=== PATIENT | male | born 1960 | race Caucasian/White ===

== ENCOUNTER 2021-02-22 07:45 | Inpatient (IN) | payer OTHER ==
[~2021-02-22] VITALS: Ht 190.5 cm; Wt 107.6 kg
[~2021-02-22 07:45] MED LIST: ALBU.083IS IH; ALBU90OI INH; ALBU90OI6 INH; BUDE10.22 IH; Cymbalta30 MG PO; DULO30 PO; ESCI10 PO; FURO20 PO; INHALER; LEVO750 PO; POTA10T PO; PRED20 PO; Prednisone20 MG PO
[2021-02-22 08:19] LABS: BASOPHILS ABSOLUTE AUTO 0.02 K/mm3 (0.00-0.23); BASOPHILS PERCENT AUTO 0 % (0-2); EOSINOPHILS PERCENT AUTO 0 % (0-6); Hematocrit 42.2 % (37.0-53.0); Hemoglobin 13.1 g/dL (13.5-17.5); IMMATURE GRAN ABSOLUTE AUTO 0.04 K/mm3 (0.00-0.10); IMMATURE GRAN PERCENT AUTO 0 % (0-1); LYMPHOCYTES PERCENT AUTO 4 % (21-46); MONOCYTES ABSOLUTE AUTO 1.79 K/mm3 (0.16-1.47); MONOCYTES PERCENT AUTO 17 % (4-13); Mean Corpuscular HGB 33.5 pg (26.0-34.0); Mean Corpuscular Volume 108 fL (80-100); Mean Platelet Volume 9.8 fL (9.1-12.4); NEUTROPHILS PERCENT AUTO 78 % (41-73); Platelet Count 258 K/mm3 (150-400); RDW Coefficient Variation 13.7 % (11.7-14.2); RDW Standard Deviation 54.8 fL (35.1-46.3); Red Blood Cell Count 3.91 M/mm3 (4.30-5.90); White Blood Cell Count 10.35 K/mm3 (4.00-11.30)
[2021-02-22 08:22] LABS: Base Excess Venous 8.1 mmol/L; Bicarbonate Venous 28.5 mmol/L (24.0-30.0); PCO2 Venous 86.1 mmHg (38-42); PO2 Venous 44.5 mmHg (38-42); pH Blood Venous 7.23 (7.34-7.37)
[2021-02-22 08:29] LABS: Alanine Aminotransfer (ALT/SGP 20 U/L (12-78); Albumin, Blood 2.7 g/dL (3.4-5.0); Albumin/Globulin Ratio 0.5 (0.8-1.8); Alk Phos 78 U/L (50-136); Anion Gap 4 mmol/L (6-16); Aspartate Aminotrans (AST/SGOT 34 U/L (12-37); Bilirubin, Total 1.3 mg/dL (0.1-1.0); Blood Urea Nitrogen 51 mg/dL (8-24); Bun/Creatinine Ratio 55.4 (12.0-20.0); CO2, Blood 30 mmol/L (21-32); Calcium, Blood 8.6 mg/dL (8.5-10.1); Chloride, Blood 91 mmol/L (98-108); Creatinine, Blood 0.92 mg/dL (0.60-1.20); Globulin, Blood 5.4 g/dL (2.2-4.0); Glomerular Filtration Rate >60 (60-); Glucose, Blood 129 mg/dL (70-99); Potassium, Blood 5.9 mmol/L (3.5-5.5); Sodium, Blood 125 mmol/L (136-145); Total Protein, Blood 8.1 g/dL (6.4-8.2); Troponin I 0.043 ng/mL (0.000-0.040)
[2021-02-22 08:36] LABS: International Normalized Ratio 1.04; Prothrombin Time Results 11.2 Sec (9.7-11.5)
[2021-02-22 10:17] LABS: Source, Urine Catheter
[2021-02-22 10:21] LABS: Appearance, Urine Hazy (Clear); Bilirubin, Urine Neg (Neg); Blood, Urine Neg (Neg); Color, Urine Yellow (P-Yellow); Glucose Qualitative, Urine Neg (Neg); Ketones, Urine Neg (Neg); Leukocyte Esterase, Urine 1+ (Neg); Nitrite, Urine Neg (Neg); Protein, Urine 3+ (Neg); Specific Gravity, Urine 1.025 (1.003-1.022); Urobilinogen, Urine 1+ (Normal)
[2021-02-22 10:30] LABS: Bacteria Few /hpf; Red Blood Cells, Urine 0-2 /hpf (0-2); Squamous Epithelial Cells Rare /hpf (Few)
[2021-02-22 10:31] LABS: Amorphous Mod (0-Heavy)
[2021-02-22 10:32] LABS: Hyaline Casts TNTC /lpf (0-2)
[2021-02-22 12:44] LABS: Influenza A, PCR NEGATIVE (NEGATIVE); Influenza B, PCR NEGATIVE (NEGATIVE); Resp Syncytial Virus, PCR NEGATIVE (NEGATIVE); SARS-Cov-2 (COVID-19) PCR, MMC NEGATIVE (NEGATIVE)
[2021-02-22 13:08] LABS: PO2 Arterial 110 mmHg (80-100)
[2021-02-22 13:09] LABS: PCO2 Arterial 97.3 mmHg (35-45); pH Blood Arterial 7.16 (7.35-7.45)
--- NOTE | 2021-02-22 13:22 | NUR ---
PT ARRIVAL AT 1130... PT ARRIVED ON UNIT VIA GURNEY AT 1130. PT WAS AWAKE AND ALERT ABLE TO STATE HIS NAME, AND WHERE HE WAS AT. PT WAS ON BIPAP AT 16/10 RATE 16 AND 55% FIO2. L/S VERY DIM T/O WITH MINIMAL AIR MOVEMENT. PT IS SITTING UP IN THE GURNEY UNABLE TO LAY DOWN, WHEN THE HEAD OF THE BED WAS LAYED DOWN TO ROLL THE PT HE WAS BECOMING VERY ANXIOUS AND UNABLE TO LAY FLAT EVEN WITH THE BIPAP ON. PT'S BP WAS STABLE. PT'S HR IS IN THE 130'S SINUS TACH W/BBB. BT PRESENT BUT VERY HYPOACTIVE, ABD IS FIRM AND NONTENDER TO PALP. PT'S YU IS PATENT DRAINING DARK YELLOW CLEAR URINE. PT'S ARE DARK RED/PURPLE WITH SMALL BLISTERS THAT ARE STARTING TO OPEN AND WHEEP. PULSES FOUND WITH DOPPLER. PT'S SCROTUM IS VERY SWOLLEN. WILL CONTINUE TO MONITOR.
--- NOTE | 2021-02-22 13:30 | NUR ---
PT UPDATE... AT 1300 THIS RN WENT IN TO DO HOURLY ROUNDING ON THE PT. THE PT DID NOT WAKE EASILY LIKE HE HAD SINCE ARRIVAL. A VERY STRONG STERNAL RUB WAS DONE AND PT SLOWLY OPENED HIS EYES PT WAS UNABLE TO KEEP HIS EYES OPEN OR RESPOND. AN ABG WAS OBTAINED THAT SHOWED CRITIAL RESULTS, RESULTS WERE CALLED TO , AND THE CHARGE NURSE IRMA. DR. LÓPEZ WAS CONSULTED. PT'S BIPAP SETTINGS CHANGED TO RATE OF 20, 20/10 AND 45% FIO2. WILL CONTINUE TO MONITOR.
[2021-02-22 15:26] LABS: Anion Gap 3 mmol/L (6-16); Blood Urea Nitrogen 55 mg/dL (8-24); Bun/Creatinine Ratio 51.9 (12.0-20.0); CO2, Blood 34 mmol/L (21-32); Calcium, Blood 8.5 mg/dL (8.5-10.1); Chloride, Blood 91 mmol/L (98-108); Creatinine, Blood 1.06 mg/dL (0.60-1.20); Glomerular Filtration Rate >60 (60-); Glucose, Blood 130 mg/dL (70-99); Magnesium, Blood 3.1 mg/dL (1.6-2.4); Phosphorus, Blood 5.5 mg/dL (2.5-4.9); Potassium, Blood 5.7 mmol/L (3.5-5.5); Sodium, Blood 128 mmol/L (136-145)
[2021-02-22 18:01] LABS: PCO2 Arterial 41.1 mmHg (35-45); PO2 Arterial 56.4 mmHg (80-100); pH Blood Arterial 7.52 (7.35-7.45)
--- NOTE | 2021-02-22 18:54 | NUR ---
SHIFT SUMMARY... AT 1346 THE PT WAS INTUBATED BY DR. LÓPEZ, 4MG OF IV VERSED AND 50MCG PROPOFOL IV PUSH WAS GIVEN FOR SEDATION MEDICATION FOR THE INTUBATION, PT WAS ALOS GIVEN 100MCG OF AMINAH PRIOR TO INTUBATION D/T HYPOTENSION. PT WAS INTUBATED WITHOUT ISSUE, ET TUBE IS 8.0 AND 24 AT THE TEETH. PT WAS PLACED ON THE VENT AT AC: 14/500/5/45%. PT'S O2 SATS HAVE BEEN >90%. PT WAS STARTED ON LEVOPHED D/T HYPOTENSION. PT'S HR CONTINUES TO BE SINUS TACH W/BBB IN THE 130'S. PROPOFOL GTT WAS STARTED AND TITRATED UP TO 60MCG/KG TO KEEP THE PT COMFORTABLE. LEVOPHED WAS TITRATED UP TO 20MCG/MIN TO KEEP MAPS >60. THE PT WAS STARTED ON NS AT 75MLS/HR, 3 BOTTLES OF ALBUMIN WAS GIVEN WELL. THE AFTERNOON PROGRESSED THE LEVOPHED WAS TITRATED DOWN TO IT'S CURRENT RATE OF 4MCG/MIN KEEPING HIS MAPS >60. PT'S FAMILY UPDATED AND ALLOWED AT THE BEDSIDE TO TALK ABOUT PT'S PLAN OF CARE AND CODE STATUS. TUBE FEEDS STARTED AT 25MLS/HR, WITH 30MLS Q4 OF H2O FLUSHES. GOAL RATE IS 45MLS/HR. WILL CONTINUE TO MONITOR UNTIL REPORT IS GIVEN TO ONCOMING RN.
--- NOTE | 2021-02-22 19:30 | NUR ---
PATIENT INTUBATED AND SEDATED WITH PROPOFOL 60 MCG FOR SEDATION. VENT SET AT AC 14, TV 400, PEEP 5, FIO2 40%. LEVOPHED 2 MCG FOR HYPOTENSION. PATIENTS LOWER EXTREMITIES BOTH BRIGHT RED AND SWOLLEN WITH SMALL BLISTERS SEEN TO LEFT CARRASCO AREA. YU DRAINING SMALL AMT OF JONATHAN URINE. FATHER CLEATUS IN TO SEE PATIENT.
--- NOTE | 2021-02-22 22:55 | NUR ---
TUBE FEEDING OFF DUE TO RESIDUAL OF 230 CC OF CLEAR AND WHITE BILE
[2021-02-23] MEDS ORDERED: TIOT18 INH (03:25)
[2021-02-23] MEDS ORDERED: FLONASE ALLERG9.9 M2 (03:29)
[2021-02-23] MEDS ORDERED: ALBU90OI INH (03:30)
[2021-02-23] MEDS ORDERED: FLUT1DIS5 INH (03:31)
[2021-02-23] MEDS ORDERED: TRELEGY ELLIPT1 EACH INH (03:32)
[2021-02-23 04:19] LABS: BASOPHILS ABSOLUTE AUTO 0.01 K/mm3 (0.00-0.23); BASOPHILS PERCENT AUTO 0 % (0-2); EOSINOPHILS PERCENT AUTO 0 % (0-6); Hematocrit 33.7 % (37.0-53.0); Hemoglobin 10.7 g/dL (13.5-17.5); IMMATURE GRAN ABSOLUTE AUTO 0.03 K/mm3 (0.00-0.10); IMMATURE GRAN PERCENT AUTO 0 % (0-1); LYMPHOCYTES ABSOLUTE AUTO 0.28 K/mm3 (0.84-5.20); LYMPHOCYTES PERCENT AUTO 3 % (21-46); MONOCYTES ABSOLUTE AUTO 1.12 K/mm3 (0.16-1.47); MONOCYTES PERCENT AUTO 13 % (4-13); Mean Corpuscular HGB 33.5 pg (26.0-34.0); Mean Corpuscular HGB Conc 31.8 g/dL (31.5-36.5); Mean Corpuscular Volume 106 fL (80-100); Mean Platelet Volume 9.9 fL (9.1-12.4); NEUTROPHILS ABSOLUTE AUTO 7.45 K/mm3 (1.96-9.15); NEUTROPHILS PERCENT AUTO 84 % (41-73); Platelet Count 198 K/mm3 (150-400); RDW Coefficient Variation 13.8 % (11.7-14.2); RDW Standard Deviation 53.6 fL (35.1-46.3); Red Blood Cell Count 3.19 M/mm3 (4.30-5.90); White Blood Cell Count 8.89 K/mm3 (4.00-11.30)
[2021-02-23 04:39] LABS: Alanine Aminotransfer (ALT/SGP 13 U/L (12-78); Albumin, Blood 2.9 g/dL (3.4-5.0); Albumin/Globulin Ratio 0.8 (0.8-1.8); Alk Phos 57 U/L (50-136); Anion Gap 4 mmol/L (6-16); Aspartate Aminotrans (AST/SGOT 13 U/L (12-37); Bilirubin, Total 1.4 mg/dL (0.1-1.0); Blood Urea Nitrogen 53 mg/dL (8-24); CO2, Blood 33 mmol/L (21-32); Calcium, Blood 8.3 mg/dL (8.5-10.1); Chloride, Blood 93 mmol/L (98-108); Creatinine, Blood 1.02 mg/dL (0.60-1.20); Globulin, Blood 3.7 g/dL (2.2-4.0); Glomerular Filtration Rate >60 (60-); Glucose, Blood 138 mg/dL (70-99); Magnesium, Blood 3.2 mg/dL (1.6-2.4); Phosphorus, Blood 4.1 mg/dL (2.5-4.9); Potassium, Blood 5.3 mmol/L (3.5-5.5); Sodium, Blood 130 mmol/L (136-145); Total Protein, Blood 6.6 g/dL (6.4-8.2)
[2021-02-23 05:31] LABS: PCO2 Arterial 51.6 mmHg (35-45); PO2 Arterial 76.8 mmHg (80-100); pH Blood Arterial 7.43 (7.35-7.45)
--- NOTE | 2021-02-23 07:00 | NUR ---
SUMMARY PATIENT REMAINS INTUBATED AND SEDATED, VENT AC 14, TV 400, PEEP 5, FIO2 40% WITH MIN SECRETIONS. PROPOFOL TITRATED DOWN TO 45 MCG, COUGH WITH ORAL CARE AND SUCTIONING, SLIGHT MOVEMENT SEEN TO EXTREMITIES. BILAT LOWER EXT CONTINUE TO BE BRIGHT RED AND SWOLLEN, BLISTER TO LEFT CARRASCO APPEARS TO BE GETTING BIGGER. OG REMAINS IN PLACE AND CLAMPED DUE TO RESIDUAL GREATER THAN 200 CC, YELLOW WITH DIGESTED FEEDING.
--- NOTE | 2021-02-23 08:00 | NUR ---
ASSUMED CARE REPORT FROM DORIS SANCHEZ. PT INTUBATED AND SEDATED. PROPOFOL GTT AT 45 MCG/KG/MIN. PT RESPONSIVE TO PAINFUL STIMULI. DOES NOT OPEN EYES OR FOLLOW COMMANDS. GAG/COUGH/SWALLOW REFLEX PRESENT. GRIMACES c CARE. VENT SETTINGS AC 14/400/40/5. LUNGS DIMINISHED IN BASES. SMALL AMOUNT OF THIN PRICE SECRETIONS THROUGH ETT. OGT CLAMPED AT SHIFT CHANGE. 200 ML OF RESIDUALS. RESTARTED TUBE FEEDS AT 25 ML/HR c 30 ML FLUSH q4 HR. ABD FIRM, ROUND, DISTENDED. HYPOACTIVE BT. U/S COMPLETE. YU PATENT, DRAINING YELLOW URINE c SEDIMENT TO GRAVITY. LEVO GTT FOR MAP>65. CENTRAL LINE TO RIGHT SUBCLAVIAN, DRESSING C/D/I. NS AT 75 ML/HR. PT EDEMATOUS FROM WAIST DOWN. 4+ EDEMA TO BLE, PITTING, RED, BLISTERING. PEDAL PULSES BY DOPPLER. DR ROSSY SUAZO FOR CONSULT. SCROTUM IS SIGNIFICANTLY SWOLLEN. WILL CONTINUE TO MONITOR.
--- NOTE | 2021-02-23 17:38 | NUR ---
SHIFT SUMMARY PT REMAINS INTUBATED. VENT SETTINGS AC 14/400/5/40%. LUNGS DIMINISHED IN BASES. SMALL AMOUNT OF PRICE SECRETIONS THROUGH ETT. COUGH/GAG/SWALLOW REFLEX. SEDATION VACATION THIS SHIFT. PT ABLE TO FOLLOW SIMPLE COMMANDS, NODS HEAD. PROPOFOL RESTARTED AT 20 MCG/KG/MIN. TUBE FEEDS RESTARTED THIS SHIFT, RESIDUALS <200ML. ABD ROUND, DISTENDED. BT X 4. YU PATENT, DRAINING YELLOW URINE c SEDIMENT TO GRAVITY, 200 ML OUT THIS SHIFT. ABD U/S AND ECHO COMPLETED THIS SHIFT, PENDING CARDIOLOGY CONSULT. HR 120-140'S, DR CORDERO AWARE. LEVO GTT REMAINS AT 3 MCG/MIN FOR ENTIRE SHIFT. NO CHANGE TO SKIN, LE AND SCROTUM. WILL CONTINUE TO MONITOR UNTIL REPORT TO ONCOMING NURSE.
--- NOTE | 2021-02-23 17:50 | NUR ---
Spiritual care note: Several attepmts to meet with family today. Per admit trigger, I was tasked to speak to pt/family about advanced care planning. I left advanced directive packet on bedside table and will continue to attempt conversation in coming days. Pt was on vent and non-responsive.
--- NOTE | 2021-02-23 18:44 | NUR ---
CARDIO CONSULT SPOKE c DR CLARK ON PHONE FOR CONSULT. WILL SEE PT TODAY. RECOMMENDED LASIX 120 MG OVER 1 HOUR, AFTER GIVING VS, DR CLARK ASKED FOR DOUGHNUT DOUGH MIXER INPUT. DR CORDERO RECOMMENDED WAITING UNTIL DR CLARK COULD ASSESS PT. LASIX NOT ORDERED AT THIS TIME.
--- NOTE | 2021-02-23 20:32 | NUR ---
PATIENT INTUBATED AND SEDATED WITH PROPOFOL 20 MCG PATIENT AWAKENS TO SLIGHT STIMULI, GRIMACING AND COUGHING WITH ORAL CARE, FULL BODY TREMOR, SHACKING AFTER REPOSITIONING, RELAXING WITH VERBAL CUES, PROPOFOL INCREASED TO 30 MCG TO HELP PATIENT MARIANNA ETT. VENT SET AT AC 14, TV 400, PEEP 5, FIO2 40% SUCTIONING MIN CLEAR SECRETIONS. OG IN PLACE WITH VITAL HP AT 25 CC/HR, 30 CC OF DIGESTED FORMULA, FEEDING INCREASED TO GOAL RATE OF 40 CC/HR. DOCTOR EDUARDO IN TO SEE PATIENT
--- NOTE | 2021-02-23 21:40 | NUR ---
DOCTOR CLARK IN TO SEE PATIENT. ADENOSINE 6 MG IV GIVEN WITH 12 LEAD RHYTHM STRIP IN PROGRESS TO CONFIRM PATIENT IS IN AFLUTTER. LOVENOX INCREASED TO 1MG/KG QDAY, AND AMIODARONE IV STARTED WITH SLOW INITIAL BOLUS, THEN STANDARD RATE.
[2021-02-24 04:23] LABS: BASOPHILS ABSOLUTE AUTO 0.01 K/mm3 (0.00-0.23); BASOPHILS PERCENT AUTO 0 % (0-2); EOSINOPHILS PERCENT AUTO 0 % (0-6); Hematocrit 36.9 % (37.0-53.0); Hemoglobin 11.9 g/dL (13.5-17.5); IMMATURE GRAN ABSOLUTE AUTO 0.04 K/mm3 (0.00-0.10); IMMATURE GRAN PERCENT AUTO 0 % (0-1); LYMPHOCYTES ABSOLUTE AUTO 0.28 K/mm3 (0.84-5.20); LYMPHOCYTES PERCENT AUTO 3 % (21-46); MONOCYTES ABSOLUTE AUTO 1.39 K/mm3 (0.16-1.47); MONOCYTES PERCENT AUTO 13 % (4-13); Mean Corpuscular HGB 33.8 pg (26.0-34.0); Mean Corpuscular HGB Conc 32.2 g/dL (31.5-36.5); Mean Corpuscular Volume 105 fL (80-100); Mean Platelet Volume 10.3 fL (9.1-12.4); NEUTROPHILS PERCENT AUTO 84 % (41-73); NRBC ABSOLUTE 0.02 K/mm3 (0.00-0.02); NRBC Auto 0.2 /100 WBC (0.0-0.2); Platelet Count 234 K/mm3 (150-400); RDW Standard Deviation 54.6 fL (35.1-46.3); Red Blood Cell Count 3.52 M/mm3 (4.30-5.90); White Blood Cell Count 10.72 K/mm3 (4.00-11.30)
[2021-02-24 04:29] LABS: PCO2 Arterial 49.1 mmHg (35-45); PO2 Arterial 62.7 mmHg (80-100); pH Blood Arterial 7.41 (7.35-7.45)
[2021-02-24 04:46] LABS: Albumin, Blood 2.9 g/dL (3.4-5.0); Albumin/Globulin Ratio 0.7 (0.8-1.8); Bilirubin, Total 1.2 mg/dL (0.1-1.0); Bun/Creatinine Ratio 40.7 (12.0-20.0); Calcium, Blood 8.3 mg/dL (8.5-10.1); Creatinine, Blood 1.5 mg/dL (0.60-1.20); Globulin, Blood 4.1 g/dL (2.2-4.0); Magnesium, Blood 3.4 mg/dL (1.6-2.4); Phosphorus, Blood 5.2 mg/dL (2.5-4.9); Potassium, Blood 5.5 mmol/L (3.5-5.5)
--- NOTE | 2021-02-24 06:40 | NUR ---
SUMMARY PATIENT REMAINS INTUBATED AND SEDATED, VENT AC 14, TV 400, PEEP 5, FIO2 35% SUCTIONING SMALL AMT OF CLEAR SPUTUM. SEDATED WITH PROPOFOL 30 MCG. OPENS EYES TO VERBAL AND OCCASIONALLY NODDING TO QUESTIONS. POT MAKER CONTINUES TO SHOW AFIB WITH RATE IN LOW 100'S WITH AMIODARONE AT 0.5 MG/MIN. LEVOPHED 5 MCG CONTINUES FOR HYPOTENSION. OG REMAINS IN PLACE WITH VITAL HP AT GOAL RATE OF 40 CC/HR WITH RESIDUAL OF 200'S. GENERALIZED EDEMA CONTINUES WITH BLISTERS TO LEFT CARRASCO AREA. BOTH LEGS CONTINUE TO BE BRIGHT RED IN COLOR.
--- NOTE | 2021-02-24 07:59 | NUR ---
Received report from Karis SANCHEZ. Patient is intubated and sedated and responds to loud verbal stimuli and painful stimuli. He has 8.0 ET and is 24 cm at teeth with vent settings AC 14, TV 400, FiO2 35% and PEEP 5.0 and sats mid to upper 90%'s. He has 20ga IV in RH flushed and SL's. He also has reight subclavin quad CL, dressing intact and site WNL's and is infusing Propofol 30 mcg/kg/min, NS TKO, Levophed 5 mcg/min, Amiodarone 0.5 mg/min. Oral care and positioning done and am care as well. He has 14Fr Reynoso draing cloudy yellow urine in scant amounts. His distal LE's from knee's down are bright red and reduced since yesterday. He is in A-fib 80-90's and systolic 70-80's and MAP >65. He has bilateral soft wrist restraints for line and patient safety.
--- NOTE | 2021-02-24 10:00 | NUR ---
Dr Esqueda in room doing assessment. TF remains on hold r/t large residual. Patient has been resting quietly. No changes to vent or gtt changes. Systolics remains 70-80 and MAP >65, Afib 80-90's. TF are changing to Pivot 1.5 at 20 ml/hr.
--- NOTE | 2021-02-24 12:00 | NUR ---
No other significant changes with patient, no new orders.
--- NOTE | 2021-02-24 13:20 | NUR ---
Met ptLucio chen on vent prayed for the pt. and blessed him.
--- NOTE | 2021-02-24 15:30 | NUR ---
Patient family member Kurt is in room and has been asking questions for family. Amiodarone remains at 0.5 mg/min, propofol 30 mcg/kg/min, NS TKO. Vent settings remains at AC 14, TV 400, FiO2 35% and PEEP 5 with sats low 90%. Only a total 50 mls of dark yellow urine of output.
--- NOTE | 2021-02-24 17:33 | NUR ---
Dr Mcwilliams by to see patient and until residual go down to keep Amiodarone at 0.5 mg/min. Vent settings AC 14, TV 400, FiO2 35%, PEEP 5.0 and sats >90%. Residual 300 ml with new Pivot 1.5 at goal 20 ml/hr. No other significant changes. Still only about 50 ml light clair urine for entire shift.
--- NOTE | 2021-02-24 20:30 | NUR ---
PATIENT INTUBATED AND SEDATED, AT 1999 PATIENT NOT RESPONDING NO COUGH WITH SUCTIONING. PROPOFOL OFF, WITHIN 15 MIN PATIENT STARTED OPENING EYES AND NODDING YES AND NO TO QUESTIONS, BOTH HANDS EXTREMELY WEAK. PROPOFOL RESTARTED AT 10 MCG, TO HELP PATIENT MARIANNA ETT. AMIODARONE CONTINUES AT 0.5 MG PLAN TO CONTINUE T/O NIGHT. LEVOPHED 4 MCG FOR HYPOTENSION, DOBUTAMINE AT 2 MCG HELPING TO WIDEN PULSE PRESSURE. GENERALIZED EDEMA CONTINUES, BOTH LEGS CONTINUE TO BE RED WITH BLISTERS TO LEFT CARRASCO. SCROTUM CONTINUES TO BE VERY SWOLLEN ALSO. SCLERAL EDEMA TO BOTH EYES. OG IN PLACE WITH PIVIT 1.5 INFUSING AT GOAL RATE OF 20 CC/HR. PATIENT CONTINUES TO HAVE HIGH RESIDUALS.
--- NOTE | 2021-02-25 02:52 | NUR ---
PATIENT AWAKENS EASILY TO SLIGHT STIMULI, OPENING EYES SLIGHTLY, ATTEMPTING TO SPEAK DESPITE BEING REMINDED THAT HE HAS AN ETT AND TO JUST NOD YES AND NO PATIENT NOT NODDING HEAD AND NOT FOLLOWING DIRECTIONS,
[2021-02-25 04:25] LABS: BASOPHILS ABSOLUTE AUTO 0.01 K/mm3 (0.00-0.23); BASOPHILS PERCENT AUTO 0 % (0-2); EOSINOPHILS PERCENT AUTO 0 % (0-6); Hemoglobin 11.5 g/dL (13.5-17.5); IMMATURE GRAN ABSOLUTE AUTO 0.06 K/mm3 (0.00-0.10); IMMATURE GRAN PERCENT AUTO 1 % (0-1); LYMPHOCYTES ABSOLUTE AUTO 0.43 K/mm3 (0.84-5.20); LYMPHOCYTES PERCENT AUTO 4 % (21-46); MONOCYTES PERCENT AUTO 15 % (4-13); Mean Corpuscular HGB 33.4 pg (26.0-34.0); Mean Corpuscular HGB Conc 31.9 g/dL (31.5-36.5); Mean Corpuscular Volume 105 fL (80-100); Mean Platelet Volume 10.2 fL (9.1-12.4); NEUTROPHILS ABSOLUTE AUTO 9.57 K/mm3 (1.96-9.15); NEUTROPHILS PERCENT AUTO 81 % (41-73); NRBC ABSOLUTE 0.05 K/mm3 (0.00-0.02); NRBC Auto 0.4 /100 WBC (0.0-0.2); Platelet Count 212 K/mm3 (150-400); RDW Standard Deviation 53.6 fL (35.1-46.3); Red Blood Cell Count 3.44 M/mm3 (4.30-5.90); White Blood Cell Count 11.87 K/mm3 (4.00-11.30)
[2021-02-25 04:48] LABS: Bun/Creatinine Ratio 38.3 (12.0-20.0); Calcium, Blood 7.7 mg/dL (8.5-10.1); Creatinine, Blood 2.01 mg/dL (0.60-1.20); Magnesium, Blood 3.2 mg/dL (1.6-2.4); Phosphorus, Blood 5.4 mg/dL (2.5-4.9)
--- NOTE | 2021-02-25 06:27 | NUR ---
SUMMARY PATIENT REMAINS INTUBATED AND SEDATED, ATTEMPTS TO OPEN HIS EYES TO VERBAL STIMULI, AND ATTEMPTS TO SPEAK AROUND ETT WHEN ASKED QUESTIONS. PROPOFOL 15 MCG TO HELP PATIENT MARIANNA ETT. LEVOPHED TITRATED DOWN T/O NIGHT NOW AT 2 MCG, DOBUTAMINE 2 MCG CONTINUES, AMIODARONE 0.5 MG CONTINUES. VENT SET AT AC 14, TV 400, PEEP 5, FIO2 45% SUCTIONING OCCASIONAL BROWN/PRICE PLUGS. OG REMAINS IN PLACE WITH PIVIT 1.5 AT GOAL RATE OF 20 CC/HR, CONTINUES TO HAVE LARGE AMTS OF RESIDUAL OF DIGESTED TUBE FEED. GENERALIZED EDEMA CONTINUES WITH BLISTERS TO BOTH SHINS SEEN. URINE OUTPUT IMPROVING T/O NIGHT. UPDATE GIVEN TO PATIENTS SISTER AND MOTHER CHARGE NURSE MARIA ISABEL
--- NOTE | 2021-02-25 07:51 | NUR ---
Received report from Karis SANCHEZ. Patient is intubated and sedated. He has 8.0 ET and is 25 cm at teeth with vent settings of AC 14, TV 400, FiO2 45%, PEEP 5.0 and sats 93%. He aroused with oral care. He is in A-fib 80-90's with systolics in the 90's. He has R subclavin quad CL and is infusing Propofol at 15 mcg/kg/min, Levophed at 2 mcg/min, Dobutamine at 2 mcg/kg/min, Amiodarone 0.5 mg/min, NS TKO. He has OG in place with Pivot 1.5 and goal rate of 20 ml/hr and 30 ml water flush Q4. He has 4+ edema from abdomen to toes. His distal bialteral LE's are bright red and aileen with touch. He is in bilateral soft wrist restraints for line and patient safety. He has 14 Fr Reynoso draining to gravity clear yellow urine and has been improving in amount.
--- NOTE | 2021-02-25 09:30 | NUR ---
Dr Mcwilliams by to see patient Dobutamine continues at 2 mcg/kg/minand systolics 100's. Placed Levophed on standby and systolics now 80-90's. Amiodarone remains at 0.5 mg/min and he has mostly SR BBB and then back to A-fib. No vent setting changes. ECHO done. Hospitalist have been by as well.
--- NOTE | 2021-02-25 10:30 | NUR ---
Initial Pal Care visit - Pt is intubated and sedated. He has tube feedings running. Brief bedside visit before case conference with RN and IDT meeting in ICU to review current status and plan. Pt is extremely edemetous from abd down with red angry appearing skin on allen LE. Family would like to meet to discuss goals and care plan, per RN. This is planned with at 2pm today. Pt's mom, Kayla, states she will bring in AD for our records. She and pt's sister, Eleni will be involved in family meeting with Dr Sanchez and Palliative Care.
--- NOTE | 2021-02-25 11:39 | NUR ---
Dr Sanchez has seen patient and new med orders in. Sister and mother POA will be here at 1400 and would like to sit down and meet with and Palliative Care. Urine output has been at least 175 ml/hr clear yellow urine.
--- NOTE | 2021-02-25 12:08 | NUR ---
Echocardiogram using 0.50ml of Definity contrast performed.
--- NOTE | 2021-02-25 15:16 | NUR ---
[facility] Care note - Proxy decision maker-mom, Kayla Suggs CHANGE IN CODE STATUS TO DNR Pt's mom & sister, Eleni, in to visit. They received update from pt's RN re: current status and changes in past 24 hours. Eleni opted to stay with Kurt while mom, Dr Sanchez and I met outside unit for family conference. gave Kayla information on multiple organ issues/challenges and outlined tx. also asked questions to learn what Kurt's quality of life and function was prior to this event. Kurt has struggled with serious health issues for approx 10 years and has had a steady decline in his ability to function for the past 6 years. He was living in a camp trailer on his mother's property but would not allow anyone in to help him. Kayla describes her son's living conditions as horrific. She said he didn't complain but was in denial about his health issues and his drinking and they did not discuss either of those things or his wishes for situations like he is in now. She was hopeful that he would be able to communicate with them to make acting as his surrogate easier on the family. Kayla is realistic that this may not be possible and she appears realistic regarding his guarded to poor prognosis due to heart failure, kidney failure and resp failure. It was a very productive meeting for learning more about his pre-hospitalization life and answering family's questions. Kayla does not want to prolong her son's suffering if recovery is not possible. She verbalizes understanding of 's thorough update. She asks that we not perform CPR if his heart stops and that we treat his pain if present. Current plan formulated between & family is to give pt time to see if tx improves his situation. Family to consider other advanced care planning to discuss with his siblings and children for future decision making, ie dialysis, trach or feeding tube if pt unable to be weaned off of vent or suffers worsening kidney failure in the next 10 days. Mom understands that no further decisions need to be discussed or made today. She indicated they would not opt for dialysis, trach or feeding tube if those options were offered at a later date but will discuss further with pt's children and siblings. Kayla states that family members have been in frequent communication with one another and are all in agreement regarding goals and plan of care at this time. VO received for code status change to DNR per mom's request. Order entered per Dr Sanchez. RN and Industrial Pharmacist updated afterwards. Spoke with sister, Eleni, and gave brief summary. Eleni states she will get more details from mom. Another sister, Yvette plans to visit tomorrow. [facility] number and names of nurses provided to Kayla and she was invited to call if she wanted to talk about anything else in the coming days.
--- NOTE | 2021-02-25 15:41 | NUR ---
Sister and mother meet with Dr Sanchez and Palliative care. Patient is now DNR. No vent setting changes. Levophed has been on standby since 1200 and Dobutamine at 2 mcg/kg/min with systolics 90-100's and MAP's >65. Urine output remains high at least 150 ml/hr. Patient moving upper extremities with agitation and care. Patient in persistent a-flutter per Dr Mcwilliams.
--- NOTE | 2021-02-25 18:00 | NUR ---
Patient remains intubated with 8.0 ET and 25 cm at teeth with vent setting AC 14, TV 400, FiO2 40, PEEP 5.0 and sats >90%. Right subclavin CL infusing Propofol 10 mcg/kg/min, Dobutamine 2 mcg/kg/min, NS TKO, changed Amiodarone to PT at 400mg BID. He has 1700 ml light clair urine from anderson. Placed rectal tube for 4th liquid brown stool.
--- NOTE | 2021-02-25 20:00 | NUR ---
ASSUMED CARE OF PT AT 1915. REPORT RECEIVED. PT PRESENTS IN BED. VENTED - AC 14, Tv 400, FIO2 40% PEEP 5. SUCTIONING ETT RETURNS SMALL AMOUNT OF BLOOD TINGED SECRETIONS. PT DOES OPEN HIS EYES WITH TACTILE STIMULI. DOBUTAMINE AT 2 MCG'S/KG/MIN. BLOOD PRESSURES REMAINS WITH MAP > 60. WILL REVIEW CHART AND PLAN OF CARE FOR THIS PT.
--- NOTE | 2021-02-26 03:00 | NUR ---
HAVE COMPLETED BEDBATH. PT TOLERATED WELL. ALLEVYN DRESSING APPLIED OVER LEFT CARRASCO ESCORIATED AREA. PT DOES CONTINUE WITH SMALL AMOUNT OF BLOOD TINGED SECRETIONS. BLOOD PRESSURES MAINTAINS WITH MAP > 65. OXYGEN SATURATION 90-92 PERCENT. WILL CONTINUE TO MONITOR.
[2021-02-26 04:24] LABS: BASOPHILS ABSOLUTE AUTO 0.01 K/mm3 (0.00-0.23); BASOPHILS PERCENT AUTO 0 % (0-2); EOSINOPHILS PERCENT AUTO 0 % (0-6); Hematocrit 37.2 % (37.0-53.0); Hemoglobin 11.9 g/dL (13.5-17.5); IMMATURE GRAN ABSOLUTE AUTO 0.07 K/mm3 (0.00-0.10); IMMATURE GRAN PERCENT AUTO 1 % (0-1); LYMPHOCYTES ABSOLUTE AUTO 0.22 K/mm3 (0.84-5.20); LYMPHOCYTES PERCENT AUTO 2 % (21-46); MONOCYTES ABSOLUTE AUTO 1.08 K/mm3 (0.16-1.47); MONOCYTES PERCENT AUTO 9 % (4-13); Mean Corpuscular HGB 33.8 pg (26.0-34.0); Mean Corpuscular Volume 106 fL (80-100); Mean Platelet Volume 9.9 fL (9.1-12.4); NEUTROPHILS ABSOLUTE AUTO 10.69 K/mm3 (1.96-9.15); NEUTROPHILS PERCENT AUTO 89 % (41-73); NRBC ABSOLUTE 0.04 K/mm3 (0.00-0.02); NRBC Auto 0.3 /100 WBC (0.0-0.2); Platelet Count 191 K/mm3 (150-400); RDW Coefficient Variation 14.1 % (11.7-14.2); RDW Standard Deviation 54.4 fL (35.1-46.3); Red Blood Cell Count 3.52 M/mm3 (4.30-5.90); White Blood Cell Count 12.07 K/mm3 (4.00-11.30)
[2021-02-26 04:35] LABS: Bun/Creatinine Ratio 45.4 (12.0-20.0); Creatinine, Blood 1.85 mg/dL (0.60-1.20); Potassium, Blood 3.9 mmol/L (3.5-5.5)
--- NOTE | 2021-02-26 05:35 | NUR ---
PT CONTINUES WITH DOBUTAMINE AT 2MCG'S/KG AND IS ABLE TO MAINTAIN MAP > 65. VENT WITH FIO2 AT 45 PERCENT. OXYGEN SATURATIONS MAINTAIN >94%, DECREASED FUI2 TI 40 %. CONTINUES TO MAINTAIN SATS > 90%. PT DOES AT TIMES RESIST CARE WITH TURNS. KEKE PATENT TO LIQUID BROWN STOOL. YU WITH URINE OUTPUT THAT IS Q.S. WILL CONTINUE TO MONITOR PT, AND WILL REPORT OFF TO ONCOMING RN.
--- NOTE | 2021-02-26 08:20 | NUR ---
INITIAL ASSESSMENT PATIENT INTUBATED AND SEDATED. PATIENT RESPONDS TO NOXIOUS STIMULI. GROSS MOVEMENTS OF EXTREMITIES NOTED. PATIENT AFEBRILE. NO SIGNS OF PAIN NOTED. PATIENT ON VENT SETTINGS OF AC 14, TV 400, PEEP 5, FIO2 INCREASED FROM 40 TO 50%. LUNGS CLEAR IN UPPER LOBES, DIMINISHED IN LOWER LOBES. SMALL AMOUNT OF THICK, RED/ BROWN SPUTUM BEING SUCTIONED FROM ETT. O2 EAR PROBE BEING CHANGED SITES Q2H. PATIENT IN A. FLUTTER WITH BBB. HR 70S TO 90S. MAPS 80S ON DOBUMATINE AT 2 MCG/ KG/ MINUTE. DOBUTAMINE DRIP PLACED ON SB; SBP DROPPED TO 70S. DOBUTAMINE RESTARTED AT 2 MCG/ KG/ MINUTE. BILAT FOOT PULSES FAINT. ABDOMEN MODERATELY DISTENDED, FIRM, WITH TYMPANIC BOWEL SOUNDS NOTED. RECTAL TUBE IN PLACE DRAINING SMALL AMOUNTS OF LIQUID, BROWN STOOL. OG IN PLACE. PIVOT 1.5 INFUSING AT GOAL RATE OF 20 MLS/ HOUR WITH 30 ML WATER FLUSH Q4H. RESIDUAL OF 200 MLS OBTAINED AND REINSTILLED THIS AM. YU IN PLACE DRAINING LIGHT YELLOW COLORED URINE. SCHEDULED LASIX ON EMAR. SKIN COLD. FEET DUSKY. BLES REDDENED WITH 3+ EDEMA. SCATTERED BRUISES AND SCABS NOTED. DEPENDENT EDEMA TO SIDES OF ABDOMEN/ THIGHS, SCROTUM. TRACE EDEMA NOTED TO BUES. PROPOFOL INFUSING 25 TO 30 MCG/ KG/ MINUTE. NS TKO. DR. HILL STATED NO SEDATION VACATION OR WEAN TODAY. BED LOW, CALL LIGHT IN REACH. WILL CONTINUE TO MONITOR PATIENT FREQUENTLY THROUGHOUT SHIFT.
--- NOTE | 2021-02-26 08:30 | NUR ---
DR. HILL IN PATIENT ROOM. UPDATED ON PATIENT. INFORMED THAT MAP 80S WITH DOBUTAMINE AT 2 MCG/ KG/ MINUTE. INFORMED THAT PLACED ON SB AND SBP DROPPED TO 70S SO DOBUTAMINE TURNED BACK ON AT 2 MCG/ KG/ MINUTE. INFORMED THAT BUN INCREASING. INFORMED THAT PATIENT HAD TF RESIDUAL OF 200 MLS THIS AM AND THAT IT WAS REINSTILLED. ORDERS RECEIVED.
--- NOTE | 2021-02-26 12:30 | NUR ---
PATIENT AFEBRILE. NO SIGNS OF PAIN NOTED. PATIENT REMAINS ON AC 14, TV 400, PEEP 5 AND 50% FIO2. PATIENT REMAINS IN A. FLUTTER WITH BBB. HR 60S TO 70S. SBP 90S TO 1-TEENS. TF RESIDUAL OF 300 MLS OBTAINED AND REINSTILLED. TF PLACED ON HOLD FOR TIME BEING. SEDIMENT NOTED IN URINE. GOOD URINE OUTPUT THUS FAR. PRECEDEX AT 0.6 MCG/ KG/ HOUR, PROPOFOL AT 20 MCG/ KG/ MINUTE. EAR PROBE SITE BEING CHANGED Q2H AND PRN. NO OTHER ACUTE CHANGES TO NOTE ON AT THIS TIME. WILL CONTINUE TO MONITOR.
--- NOTE | 2021-02-26 16:00 | NUR ---
Spiritual care note: Provided supportive visit to Kurt and his sister at bedside. Kurt is surprisingly lucid and responsive. he denies fear/pain. He seems to understand he may be facing end-of-life. oth were appreciative of prayer and gentle counseling services director. Affirmed obvious love and encouraged continued communication. Family hope that Kurt can be safely extubated soon. At the very least they are hoping he is lucid enough tomorrow to have conversation and POC and code choices. Family feels Kurt should make his own decisions. I will remain available.
--- NOTE | 2021-02-26 16:15 | NUR ---
PATIENT AFEBRILE. PATIENT REMAINS INTUBATED. PROPOFOL ON SB AND PRECEDEX AT 0.2 MCG/ KG/ HOUR. PATIENT ABLE TO OPEN EYES WHEN ASKED TO. PATIENT LIKES TO KEEP EYES CLOSED. PATIENT CALM, COOPERATIVE AND ABLE TO COMMUNICATE WITH NURSE AND FAMILY BY NODDING/ SHAKING HEAD, SIGNALING WITH HANDS, WRITING ON NOTEPAD. HR 70S TO 90S. SBP 90S TO 120S. TF RESIDUAL OF 110 OBTAINED AND REINSTILLED. TF RESTARTED BUT AT NEW GOAL RATE OF 30 MLS/ HOUR. VENT SETTINGS REMAIN THE SAME. OXYGEN EAR PROBE SITE CHANGED. NO OTHER CHANGES TO NOTE ON AT THIS TIME. WILL CONTINUE TO MONITOR.
[2021-02-26 17:04] LABS: Bun/Creatinine Ratio 48.4 (12.0-20.0); Calcium, Blood 8.4 mg/dL (8.5-10.1); Creatinine, Blood 1.84 mg/dL (0.60-1.20); Potassium, Blood 3.4 mmol/L (3.5-5.5)
--- NOTE | 2021-02-26 18:35 | NUR ---
SHIFT SUMMARY PATIENT REMAINED INTUBATED. PATIENT SEDATED ON PROPOFOL AT BEGINNING OF SHIFT. PATIENT RESPONDED TO NOXIOUS STIMULI. PATIENT DECREASED TO SB ON PROPOFOL AND PLACED ON PRECEDEX FOR SEDATION DURING SHIFT. PATIENT ORIENTED TO SELF, NURSE, FAMILY, FOLLOWING DIRECTIONS. PATIENT ABLE TO COMMUNICATE WITH HAND SIGNALS, NODDING/ SHAKING OF HEAD AND WRITING ON NOTEPAD. PATIENT REMAINED CALM AND COOPERATIVE. HAD NO COMPLAINTS OF PAIN. PATIENT REMAINED AFEBRILE. PATIENT ON AC 14, TV 400, PEEP 5 AND 40% FIO2 UPON ASSUMPTION OF CARE. FIO2 INCREASED TO 50% SHORT TIME LATER AND REMAINS AT 50%. SMALL AMOUNT OF THICK, RED/BROWN SECRETIONS BEING SUCTIONED FROM ETT. LUNGS REMAINED CLEAR IN UPPER LOBES AND DIMINISHED IN LOWER LOBES ON AUSCULTATION. PATIENT REMAINED IN A. FLUTTER WITH BBB, HR 70S TO 90S. SBP 70S TO 120S. BPS LOW WHEN DOBUTAMINE ON SB FOR SHORT WHILE. BP REMAINED STABLE WITH DOBUTAMINE ON. DOBUTAMINE TO REMAIN AT MINIMUM RATE OF 2 MCG/ KG/ MINUTE THROUGHOUT NIGHT PER DR. HILL AND DR. CLARK. PATIENT HAD 250 MLS OF BROWN, LIQUID STOOL FROM RECTAL TUBE. TF RATE CHANGED FROM 20 MLS/ HOUR TO 35 AND BACK DOWN TO 30 THIS SHIFT. RESIDUALS RANGED FROM 110 TO 300 MLS. TF HELD FOR SHORT TIME DURING SHIFT AFTER HIGH RESIDUAL. YU DRAINED 2850 MLS OF LIGHT YELLOW URINE WITH SEDIMENT NOTED. NO CHANGES TO SKIN. PATIENT REPOSITIONED Q2H T/O SHIFT. PATIENT RECEIVED 80 MEQ KCL PT FOR POTASSIUM OF 3.4 THIS EVENING. PATIENT COMFORTABLE AT THIS TIME. BED LOW, CALL LIGHT IN REACH. WILL BE GIVING REPORT TO ONCOMING BODY AND FENDER MECHANIC APPRENTICE NURSE SHORTLY.
--- NOTE | 2021-02-26 21:00 | NUR ---
ASSUMED CARE THIS STUDENT NURSE ASSUMED CARE OF THIS PT AT 1900. PT WAS LYING IN BED WITH EYES CLOSED AND MUSIC PLAYING FROM A CELL PHONE IN THE ROOM. ETT IN PLACE WITH VENT SET AT AC 14/400/5/40% WITH SPO2 88%, FIO2 INCREASED TO 50% WITH SPO2 IMPROVED TO >90%. RT SUBCLAVIAN LINE INFUSING NS @ 10ML/HR, PRECEDEX @ 0.2MCG/KG/HR, AND DOBUTAMINE @ 2MCG/KG/MIN. PROPOFOL WAS NOT INFUSING AT THIS TIME. YU CATHETER IN PLACE AND DRAINING CLEAR/YELLOW URINE AND RECTAL TUBE IN PLACE AND DRAINING BROWN LIQUID STOOL. PT AWAKENS TO VERBAL STIMULI AND ABLE TO NOD HEAD TO QUESTIONS. WILL CONTINUE TO MONITOR STATUS.
[2021-02-27 04:14] LABS: BASOPHILS ABSOLUTE AUTO 0.01 K/mm3 (0.00-0.23); BASOPHILS PERCENT AUTO 0 % (0-2); EOSINOPHILS PERCENT AUTO 0 % (0-6); Hematocrit 36.7 % (37.0-53.0); Hemoglobin 12.1 g/dL (13.5-17.5); IMMATURE GRAN ABSOLUTE AUTO 0.06 K/mm3 (0.00-0.10); IMMATURE GRAN PERCENT AUTO 0 % (0-1); LYMPHOCYTES ABSOLUTE AUTO 0.27 K/mm3 (0.84-5.20); LYMPHOCYTES PERCENT AUTO 2 % (21-46); MONOCYTES ABSOLUTE AUTO 1.65 K/mm3 (0.16-1.47); MONOCYTES PERCENT AUTO 12 % (4-13); Mean Corpuscular HGB 34.1 pg (26.0-34.0); Mean Corpuscular Volume 103 fL (80-100); Mean Platelet Volume 10.1 fL (9.1-12.4); NEUTROPHILS ABSOLUTE AUTO 11.81 K/mm3 (1.96-9.15); NEUTROPHILS PERCENT AUTO 86 % (41-73); NRBC ABSOLUTE 0.02 K/mm3 (0.00-0.02); NRBC Auto 0.1 /100 WBC (0.0-0.2); Platelet Count 207 K/mm3 (150-400); RDW Coefficient Variation 13.8 % (11.7-14.2); RDW Standard Deviation 52.3 fL (35.1-46.3); Red Blood Cell Count 3.55 M/mm3 (4.30-5.90)
[2021-02-27 04:36] LABS: Bun/Creatinine Ratio 48.9 (12.0-20.0); Calcium, Blood 8.1 mg/dL (8.5-10.1); Creatinine, Blood 1.74 mg/dL (0.60-1.20); Magnesium, Blood 3.1 mg/dL (1.6-2.4); Potassium, Blood 3.4 mmol/L (3.5-5.5)
--- NOTE | 2021-02-27 05:38 | NUR ---
END OF SHIFT SUMMARY PT REMAINED ON AC 14/400/5/40% THROUGHOUT SHIFT. DURING MAJOR TURNS AND PROLONGED CARE HE NEEDED INCREASED FIO2 TO 100% FOR 2 MINUTES THEN SPO2 RETURNED TO >90%. LUNG SECRETIONS TURNED FROM THIN RED/PRICE TO THICK/PRICE/STREAKED. PRECEDEX REMAINED AT 0.2MCG/KG/HR, DOBUTAMINE @ 2MCG/KG/MIN, AND NS TKO. PROPOFOL REMAINED OFF THROUGHOUT SHIFT. URINE OUTPUT WAS GOOD AT 2100ML CLEAR/YELLOW. RECTAL TUBE OUTPUT OF 50ML OF BROWN/LIQUID. TF RESIDUALS REMAINED MINIMAL @ 20-100ML. DUE TO PT BEING ALERT AND ORIENTED, SOFT TOUCH CALL LIGHT PROVIDED AND UTILIZED APPROPRIATELY BY PT. SBP REMAINED AT 100-110'S, HR 90'S, RR 14-20. WILL CONTINUE TO MONITOR UNTIL REPORT GIVEN TO ONCOMING RN.
--- NOTE | 2021-02-27 06:30 | NUR ---
FORKLIFT MATERIAL HANDLER DOCUMENTATION REVIEW I HAVE READ AND AGREE WITH BOTH "ASSUMED PT CARE" AND "END OF SHIFT SUMMARY" NOTES ENTERED BY [facility].
--- NOTE | 2021-02-27 09:00 | NUR ---
DR WINN, LIQUOR DEPARTMENT MANAGER, AT BEDSIDE FOR EVALUATION. WANTS DOBUTAMINE TO REMAIN INFUSING AT 2MCG/KG/MIN. REQUESTS CVP MONITORING TO BE STARTED. WILL SET UP AND RECORD RESULTS.
--- NOTE | 2021-02-27 09:40 | NUR ---
DR ONEILL AT BEDSIDE FOR EVALUATION. PT PLACED ON SPONTANEOUS 15/03/40 TO EXERCISE MUSCLES. WILL CONTINUE TO MONITOR PT'S TOLERANCE.
--- NOTE | 2021-02-27 10:35 | NUR ---
Brief visit at bedside in ICU. Pt sedated at this time but doing much better with mentation when awake per nursing. He is no longer requiring restraints and is able to follow commands and nod appropriately yes or no. His 4+ pitting LE edema & redness appear mostly unchanged from prev assessment. feels pt may be able to be weaned off ventilator in the next couple of days. Family aware of current status, pleased with improvement and remain realistic that his alf prognosis may not be good once extubated. Case conferenced with RN and with IDT meeting with , RT, dietitian and pharmacist in charge owner. Pal Care to remain available.
--- NOTE | 2021-02-27 10:49 | NUR ---
ASSUMPTION OF CARE ASSUMED CARE OF PT AT THIS TIME. PT REMAINS ON VENT AC /. PT IS ALERT, ABLE TO FOLLOW COMMANDS, USES HAND MOTIONS, NODS/SHAKES HEAD, AND MOUTHS WORDS. PT HAS PRECEDEX INFUSING AT 0.2MCG/KG/HR AND DOBUTAMINE AT 2MCG/KG/MIN. TUBE FEEDING RUNNING AT GOAL RATE OF 30ML/HR. PT REMAINS OUT OF RESTRAINTS. NO ATTEMPTS TO REACH FOR TUBING. YU IN PLACE DRAINING CLEAR, YELLOW URINE. RECTAL TUBE IN PLACE WITH BROWN, LIQUID STOOL DRAINING. CURRENTLY LISTENING TO MUSIC, APPEARS COMFORTABLE.
--- NOTE | 2021-02-27 11:15 | NUR ---
PT'S MOTHER AT BEDSIDE WITH SURINDER PEACOCK FROM PALLIATIVE CARE.
--- NOTE | 2021-02-27 11:33 | NUR ---
Met pt. lying in bed and his nuerses in the room attending to his needs , pt. is ndpoing much better encouraged and prayed for the pt.
--- NOTE | 2021-02-27 12:00 | NUR ---
PT PLACED BACK ON AC / AT THIS TIME.
--- NOTE | 2021-02-27 12:34 | NUR ---
Pal Care visit with pt/mom at bedside. Supportive visit made and mom's quesitons answered. Pt communicating well with his mom and with me. He gets fatigued and frustrated at times with the effort. He expressed with hands and noding when I guessed correctly that he is worried about his mom and wanting her to rest and take care of herself. Mom given update on current status, improvement and hope of extubation in the next couple of days with pt on spontaneous vent setting. Pt is using all ancillary muscles of respiration and it appears to be hard work for him. This was explained to mom as necessary in prep for extubation. Mom expressed gratitude for more time with her son and more time for his children to be with him, even if nursing home pt's prognosis remains poor due to multple severe chronic illnesses of lungs, heart, kidneys and overall debility. Kayla came in early so that she could meet with José Miguel comer also. I gave her booklet on advanced care planning to assist with questions she wanted to ask Kurt's providers and help family/pt set goals of care at this time.
--- NOTE | 2021-02-27 16:00 | NUR ---
PT MOVED TO ICU 7. ALL BELONGINGS MOVED. PT APPEARS COMFORTABLE AND HAS NO ADDITIONAL NEEDS. CONTINUES LISTENING TO MUSIC.
--- NOTE | 2021-02-27 18:07 | NUR ---
SHIFT SUMMARY PT REMAINS INTUBATED AT THIS TIME ON AC 14/400/5/40%. PT WAS ON SPONTANEOUS FOR APPROX 2.5HRS. SMALL AMOUNTS OF RED SECRETIONS WHEN SUCTIONED. PT IS ALERT, ABLE TO FOLLOW COMMANDS, USES HAND SIGNALS, AND NODS YES/NO. PT USES CALL LIGHT APPROPRIATELY. PT CONTINUES TO HAVE 4+ PITTING EDEMA TO BLE. R SUBCLAVIAN CENTRAL LINE IN PLACE, DRESSING WNL. CURRENTLY INFUSING DOBUTAMINE 2MCG/KG/MIN, PRECEDEX 0.2MCG/KG/HR, TUBE FEEDING INFUSING AT GOAL RATE OF 35ML/HR W/ 30ML FLUSH Q4HRS. YU IN PLACE DRAINING CLEAR, YELLOW URINE. OUTPUT OF 2810 DURING SHIFT. RECTAL TUBE IN PLACE WITH AN OUTPUT OF 400ML. NEW BAG PLACED. EKG ORDERED FOR AM. WILL REPORT TO ONCOMING RN.
--- NOTE | 2021-02-27 19:30 | NUR ---
ASSUMED CARE THIS STUDENT NURSE ASSUMED CARE OF THIS PT AT 1900. PT LYING IN BED WITH EYES CLOSED AND LISTENING TO MUSIC ON HIS CELL PHONE. PT IS INTUBATED WITH PRECEDEX AT 0.2MCG/KG/HR. NS INFUSING AT 10ML/HR WITH ZOSYN PIGGYBACKED AT 12.5ML/HR. DOBUTAMINE INFUSING AT 2MCG/KG/MIN. VENT SET AT AC 14/400/5/40%. WILL CONTINUE TO MONITOR THROUGHOUT SHIFT.
[2021-02-28 04:54] LABS: BASOPHILS ABSOLUTE AUTO 0.02 K/mm3 (0.00-0.23); BASOPHILS PERCENT AUTO 0 % (0-2); EOSINOPHILS PERCENT AUTO 0 % (0-6); Hematocrit 37.1 % (37.0-53.0); Hemoglobin 11.8 g/dL (13.5-17.5); IMMATURE GRAN ABSOLUTE AUTO 0.07 K/mm3 (0.00-0.10); IMMATURE GRAN PERCENT AUTO 1 % (0-1); LYMPHOCYTES ABSOLUTE AUTO 0.49 K/mm3 (0.84-5.20); LYMPHOCYTES PERCENT AUTO 4 % (21-46); MONOCYTES ABSOLUTE AUTO 2.13 K/mm3 (0.16-1.47); MONOCYTES PERCENT AUTO 16 % (4-13); Mean Corpuscular HGB 33.5 pg (26.0-34.0); Mean Corpuscular HGB Conc 31.8 g/dL (31.5-36.5); Mean Corpuscular Volume 105 fL (80-100); Mean Platelet Volume 10.5 fL (9.1-12.4); NEUTROPHILS ABSOLUTE AUTO 11.03 K/mm3 (1.96-9.15); NEUTROPHILS PERCENT AUTO 80 % (41-73); Platelet Count 208 K/mm3 (150-400); RDW Coefficient Variation 14.4 % (11.7-14.2); RDW Standard Deviation 54.6 fL (35.1-46.3); Red Blood Cell Count 3.52 M/mm3 (4.30-5.90); White Blood Cell Count 13.74 K/mm3 (4.00-11.30)
[2021-02-28 05:22] LABS: Anion Gap 3 mmol/L (6-16); Blood Urea Nitrogen 84 mg/dL (8-24); Bun/Creatinine Ratio 51.5 (12.0-20.0); CHOL/HDL RATIO 3.2; CO2, Blood 40 mmol/L (21-32); Calcium, Blood 8.2 mg/dL (8.5-10.1); Chloride, Blood 97 mmol/L (98-108); Cholesterol 116 mg/dL (50-200); Creatinine, Blood 1.63 mg/dL (0.60-1.20); Glomerular Filtration Rate 46 (60-); Glucose, Blood 154 mg/dL (70-99); HDL Cholesterol 36 mg/dL (>39); LDL/HDL RATIO 1.8; Low Density Lipoprotein Chol 63 mg/dL (0-110); Phosphorus, Blood 2.7 mg/dL (2.5-4.9); Potassium, Blood 2.9 mmol/L (3.5-5.5); Sodium, Blood 140 mmol/L (136-145); Triglycerides 85 mg/dL (30-160); Very Low Density Lipoprot Chol 17 mg/dL (6-32)
--- NOTE | 2021-02-28 06:28 | NUR ---
END OF SHIFT SUMMARY NO MAJOR CHANGES IN PT STATUS THROUGHOUT SHIFT. PT REMAINED INTUBATED WITH PRECEDEX INCREASED TO 0.4MCG/KG/HR D/T INCREASED ANXIETY REPORTED BY PT. DOBUTAMINE REMAINED AT 2MCG/KG/MIN, NS TKO, ZOSYN @ 12.5ML/HR, AND TF AT GOAL RATE OF 30ML/HR WITH MINIMAL RESIDUALS OF 10-15ML. PT REPORTED INCREASED FREQUENCY OF PAIN IN SCROTUM RATED AT A 5-7/10; MEDICATED WITH FENTANYL 50-75MCG IV Q2P. PT RESTED MOST OF THE NIGHT LISTENING TO MUSIC ON HIS PHONE AND WATCHING VIDEOS ON HIS PHONE. PT WAS ABLE TO CALL HIS MOTHER THIS MORNING AND MADE HIS NEEDS KNOWN THROUGHOUT THE NIGHT WITH APPROPRIATE USE OF HIS SOFT TOUCH CALL LIGHT THROUGHOUT THE SHIFT. V/S REMAINED STABLE WITH RR 15-20'S, SPO2 >90%, HR IN 90'S, SBP 100'S-110'S. CVP MONITORING IN PLACE AND MAINTAINED AT 12-13. WILL CONTINUE TO MONITOR UNTIL REPORT GIVEN TO ONCOMING RN.
--- NOTE | 2021-02-28 06:49 | NUR ---
SERVICE CENTER SPECIALIST REVIEW DOCUMENTATION I HAVE READ AND AGREE WITH BOTH "ASSUMED PT CARE" AND "END OF SHIFT SUMMARY" NOTES ENTERED BY [facility]IE[facility]
[2021-02-28 07:10] LABS: HEP A AB, IGM Negative (Negative); HEP B CORE AB, IGM Negative (Negative)
--- NOTE | 2021-02-28 07:30 | NUR ---
PT RECLINING IN THE BED, VENTILATOR VIA ETT AC 14/400/5/40%; OG WITH TF PIVOT AT 30ML/HR WITH 30ML H20 FLUSHES. LUNGS CLEAR/DIMINISHED IN THE BASES, BELLY SEMI SOFT WITH HYPO BT, YU TO GRAVITY DRAINAGE WITH YELLOW RETURN, RECTAL TUBE WITH GREEN LIQUID RETURN. BLE EDEMATOUS CALVES 3, FEET 4+. MUSIC PLAYING PT ENGAGING WITH EYES, MOUTHING WORDS, HAND SIGNALS, USING THE Cabeo BOARD.
[2021-02-28 09:10] LABS: HBSAG SCREEN Negative (Negative); HEP B CORE AB, TOT Positive (Negative); HEP C VIRUS AB <0.1 (0.0-0.9)
--- NOTE | 2021-02-28 10:00 | NUR ---
PUT SOME LOTION ON PT LEGS, PT GAVE PERMISSION, DENIES ANY PAIN OR TENDERNESS. PT TOLERATED WELL. REQUESTED TO SIT UP, STRAIGHT UP, HOLDING SIDE RAILS, STILL WEAK ABLE TO HOLD SELF THOUGH WHILE BACK OF BED BROUGHT UP.
--- NOTE | 2021-02-28 18:44 | NUR ---
BERLIN HAS DONE WELL THIS SHIFT. HE CONTINUES ON PRESSURE SUPPORT OF 16, FI02 40%, HE IS NOT WORN OUT OR TIRED. HE HASN'T ASKED FOR ANY PAIN MEDICATION THIS SHIFT. HE HAS ALLOWED ME TO REPOSITION HIM A COUPLE OF TIMES THIS SHIFT, OTHER THAN ROM. HE DID USE THE ORAL SUCTION WITH MUCH ENCOURAGEMENT. HE CONTINUES WITH THE CENTRAL LINE, WILL DISCONTINUE FIRST CHANCE AFTER A PICC OR POWER GLIDE CAN BE PLACED. WILL GIVE REPORT TO NEXT SHIFT WHEN ABLE.
--- NOTE | 2021-02-28 19:00 | NUR ---
ASSUMED CARE THIS STUDENT NURSE ASSUMED CARE OF THIS PT AT 1900. PT LYING IN BED LISTENING TO MUSIC ON HIS PHONE WITH BED TURNED TOWARDS THE WINDOW. PT TRACKS SOUND AND COMMUNICATES WITH STAFF THROUGH THE USE OF NODDING, HAND GESTURES, COMMUNICATION BOARD, AND WRITING ON PEN AND PAPER. SOFT TOUCH CALL LIGHT WITHIN REACH OF PT. PT INTUBATED ON SPONTANEOUS PRESSURE SUPPORT 16/5 FIO2 40% WITH SPO2 AT 90% AND RR IN 20'S. NO SEDATION INFUSING. PRECEDEX INFUSING @ 0.2 MCG/KG/HR, DOBUTAMINE @ 1 MCG/KG/MIN, AND ZOSYN @ 12.5ML PIGGYBACKED INTO NS @ 10ML/HR. CONTINUOUS TF @ GOAL RATE OF 30ML/HR. CVP PRESSURE MONITORED THROUGH RT SUBCLAVICULAR CL. WILL CONTINUE TO MONTIOR.
--- NOTE | 2021-03-01 04:57 | NUR ---
END OF SHIFT SUMMARY NO MAJOR CHANGES TO PT STATUS. POTASSIUM RESULT AT 3.0; CALL PLACED TO DR. HILL AND OBTAINED ONE TIME ORDER OF KCL 80 MEQ PT. REMAINED INTUBATED ON SPONTANEOUS PRESSURE SUPPORT FOR ENTIRE SHIFT AT 16/5 AND FIO2 INCREASED FROM 40% TO 50%; SPO2 >90%. INFUSIONS REMAINED THE SAME WITH PRECEDEX @ 0.2MCG/KG/HR, NS @ 10ML/HR, AND DOBUTAMINE @ 1MCG/KG/MIN. TF REMAINED AT GOAL RATE OF 30ML/HR WITH MINIMAL RESIDUALS. PT WAS ABLE TO MAKE NEEDS KNOWN THROUGHOUT SHIFT WITH THE USE OF WRITING, GESTURING, AND NODDING WITH APPROPRIATE USE OF BEDSIDE CALL LIGHT. RECTAL TUBE WAS REMOVED AND PT IS ABLE TO REPORT URGE TO DEFECATE TO STAFF; DIARRHEA IS STILL PRESENT. V/S REMAINED STABLE WITH SBP 90'S-100'S, HR 80'S-90'S, AND RR 15-20'S. WILL CONTINUE TO MONITOR UNTIL HANDOFF REPORT GIVEN TO ONCOMING RN.
[2021-03-01 05:05] LABS: Albumin, Blood 2.2 g/dL (3.4-5.0); Albumin/Globulin Ratio 0.5 (0.8-1.8); Bilirubin, Total 0.9 mg/dL (0.1-1.0); Bun/Creatinine Ratio 49.4 (12.0-20.0); Creatinine, Blood 1.58 mg/dL (0.60-1.20); Globulin, Blood 4.4 g/dL (2.2-4.0); Magnesium, Blood 2.7 mg/dL (1.6-2.4); Potassium, Blood 3.4 mmol/L (3.5-5.5); Total Protein, Blood 6.6 g/dL (6.4-8.2)
--- NOTE | 2021-03-01 05:39 | NUR ---
INDUSTRIAL ENGINEERING ANALYST DOCUMENTATION REVIEW I HAVE READ AND AGREE WITH BOTH "ASSUMED CARE" AND "END OF SHIFT SUMMARY" NOTES ENTERED BY [facility].
--- NOTE | 2021-03-01 08:00 | NUR ---
PT ENGAGING AND INTERACTIVE THIS AM. PT NEEDED BEDPAN, TOLERATED MOVEMENT TO PLACE WELL. SPONTANEOUS, PS 16 40%FI02. OG IN PLACE WITH TUBE FEEDING. YU TO GRAVITY DRAINAGE. LIQUID BM'S. PT LOOKING FORWARD TO POSSIBILITY OF EXTUBATION.
--- NOTE | 2021-03-01 09:20 | NUR ---
PICC LINE PLACED BY DANIEL FUENTES WITH DANIEL CAMARILLO ASSIST. PT TO HAVE THE CENTRAL LINE REMOVED.
--- NOTE | 2021-03-01 10:10 | NUR ---
HAD THE PRECEDEX TURNED TO STANDBY SO THAT WE COULD TRY EXTUBATION.
--- NOTE | 2021-03-01 11:00 | NUR ---
PT EXTUBATED AT 1056 WITH ETHEL,RT. PT TOLERATED WELL, ANXIOUS BUT GOOD SATS WITH OXYGENATION. PT NEEDS TO HAVE BM.
--- NOTE | 2021-03-01 12:12 | NUR ---
PT MOVED TO [facility] [place], VERY WEAK, 3 PERSON MAX TRANSFER. PT THEN STOOD WITH ASSIST BY ROGER. CLEANED UP AND PUT IN RECLINER. PT TOLERATING RECLINER WELL. DR. HILL IN TO SPEAK WITH PATIENT. HIFLO NC DECREASED TO 6L PT SATS >97%. FEET DOWN AND PURPLE. ENCOURAGE PATIENT TO RETURN TO BED AND PUT FEET UP.
--- NOTE | 2021-03-01 12:31 | NUR ---
CEILING LIFT FOR PT TO GO BACK TO BED FROM RECLINER. DIDN'T LIKE THE CHAIR, FOR HIS LEGS OR HIS "GUTS". PT VERY ANXIOUS WHILE ON CEILING LIFT, KEPT TRYING TO GRAB THE QUAD HANGAR, ENCOURAGED REPEATEDLY THAT HE WAS SAFE, HE NEEDED TO NOT GRAB THE BAR. PT IMMEDIATELY WANTED HEAD UP BEFORE HE WAS SECURE TO THE BED, REITERATING ENCOURAGEMENT. "FEELS BETTER" IN BED.
--- NOTE | 2021-03-01 13:34 | NUR ---
SISTER LEELA WAS JUST HERE WITH PATIENT. BERLIN IS VERY QUIET, WORKING VERY HARD TO BREATHE. HE WAS MEDICATED WITH ATIVAN 1MG IV PER . HE SEEMS TO BE STRUGGLING TO FOCUS. HE WAS OFF THE BIPAP FOR THE LAST 20 MINUTES WHILE SISTER HERE. SATS ARE DOING WELL, BUT WORK OF BREATHING CONTINUES. HE IS ON THE DOBUTAMINE 1MCG/KG/MIN. THE PRECEDEX REMAINS ON STANDBY. WILL CONTINUE TO WATCH FOR FURTHER CHANGES IN DISPOSITION/LOC.
--- NOTE | 2021-03-01 16:37 | NUR ---
BERLIN IS TRYING TO REST ON THE BIPAP. HE GETS ANXIOUS WITH FAMILY HERE AND WANTS TO VISIT WITH THEM, SO HE ASKS TO TAKE OFF THE BIPAP. HE STRUGGLES TO GET HIS BREATH AND BE COMFORTABLE. HIS (EX) IS CURRENTLY IN THE ROOM. HE KEEPS ASKING FOR SOMETHING TO EAT, LIKE FRUIT. I TOLD HIM THAT I HAVE A BANANA BAG READY TO MIX IN INSURE SOON HE IS STABLE, BUT HE IS GETTING IN TOO MUCH OF A HURRY AND NOT LETTING HIS BODY RECOVER. HE WILL CONTINUE TO TAKE SIPS OF THE 'S BEVERAGE SOON I STEP OUT OF THE ROOM. PT DID HAVE A DISCUSSION WITH ABOUT NO INTUBATION, NO CPR. HE CONTINUES ON LEVOPHED 10MCG, DOBUTAMINE 2MCG AND AMIODARONE 1MG/MIN.
--- NOTE | 2021-03-01 18:21 | NUR ---
BERLIN IS RESTING NOW, HE WAS ABLE TO TOLERATE STRAWBERRY ICE CREAM AND ENSURE WITH BANANA FLAKES. HE WAS STABLE WITH HEART RATE 120'S, SATS 94 AND BREATHING EVEN, LESS LABORED. HE THEN ASKED TO HAVE HIS BIPAP BACK ON. HE WAS MORE ENGAGING AND LIGHTHEARTED THIS AFTERNOON POST HIS AFTERNOON LULL. HE CONTINUES ON THE LEVOPHED AT 10MCG/MIN, AMIODARONE @ 1MG/MIN, DOBUTAMINE @ 2MCG/KG/MIN. HIS BIPAP IS 14/5 AND HE IS RESTING WELL. FAMILY IS GONE AND PT IS QUIET AND MORE SETTLED. PICC LINE INTACT AND WORKING WELL. CENTRAL LINE NOT REMOVED YET.
--- NOTE | 2021-03-01 19:18 | NUR ---
ASSUMED PT CARE FROM DANIEL HUITRON AT 1900 PT SITTING UP IN BED WITH LABORED BREATHING NOTED. BIPAP IN PLACE; 13/03; FIO2 40%, RESP RATE 30-40'S. SPO2 >88% WITH FREQUENT DROPS TO 85%; THEREFORE, INCREASED FIO2 TO 50% WITH IMPROVEMENT IN SPO2. PT IS ALERT AND ORIENTED. ONLY ABLE TO SPEAK IN 1-2 WORD SENTENCES D/T SOB. AFLUTTER WITH RATE 140'S. AMIODARONE INFUSING AT 1MG/MIN, LEVOPHED AT 10MCG/MIN, DOBUTAMINE AT 2MCG/KG/MIN. SBP'S 90'S-110'S; MAPS >65. PICC LINE TO LEFT UPPER ARM. CENTRAL LINE STILL REMAINS IN PLACE TO RIGHT SUBCLAVIAN SITE, WHICH IS SALINE LOCKED AT THIS TIME. NEED TO BE PULLED; HOWEVER, PT IS UNABLE TO LIE FLAT AT THIS TIME FOR SAFE REMOVAL. YU CATHETER REMAINS IN PLACE, WHICH IS PATENT AND DRAINING TO GRAVITY. BLE'S REMAIN EDEMATOUS AND RED WITH BLISTERS AND VENOUS ULCERS NOTED. BILATERAL FEET NOTED TO BE +3 PITTING AND CYANOTIC. CALL LIGHT IS WITHIN REACH. PT ABLE TO MAKE NEEDS KNOWN. APPEARS VERY LETHARGIC AT THIS TIME D/T WORK OF BREATHING. WILL CONTINUE TO MONITOR. NO FAMILY AT BEDSIDE AT THIS TIME.
--- NOTE | 2021-03-01 23:08 | NUR ---
REASSESSMENT CALLED DR. HILL FOR AN UPDATE REGARDING PT'S WORK OF BREATHING AND OXYGEN REQUIREMENTS. PT DOES NOT TOLERATE LYING FLAT, BUT HAS STILL BEEN HAVING DIARRHEA. THEREFORE, DURING LINEN CHANGE PT BECAME VERY ANXIOUS AND STARTED HOLLERING OUT FOR HELP DESPITE REDIRECTION WITH CALMING TOUCH AND TALK. PT REQUIRED 100% FIO2 DURING AND EVEN AFTER ADL WAS PERFORMED. NEW ORDERS FOR RT TO INCREASE EXPIRATORY PRESSURE UP TO A MAX OF 10 NEEDED. NEW ORDERS TO RESTART PRECEDEX AT A LOW DOSE WELL. PT FIRST MEDICATED WITH MORPHINE SULFATE FOR AIR HUNGER TO SEE IF RESP RATE IMPROVED, WHICH WAS INEFFECTIVE; THEREFORE, PRECEDEX RESTARTED AT 0.3MCG/KG/HR. BIPAP IS CURRENTLY AT 14/8 AND FIO2 IS BACK TO 50%. RESP RATE REMAINS IN THE 30'S. WILL CONTINUE TO REASSESS.
[2021-03-02 03:29] LABS: BASOPHILS ABSOLUTE AUTO 0.02 K/mm3 (0.00-0.23); BASOPHILS PERCENT AUTO 0 % (0-2); EOSINOPHILS ABSOLUTE AUTO 0.08 K/mm3 (0.00-0.68); EOSINOPHILS PERCENT AUTO 1 % (0-6); Hematocrit 35.6 % (37.0-53.0); Hemoglobin 10.9 g/dL (13.5-17.5); IMMATURE GRAN ABSOLUTE AUTO 0.07 K/mm3 (0.00-0.10); IMMATURE GRAN PERCENT AUTO 0 % (0-1); LYMPHOCYTES ABSOLUTE AUTO 0.91 K/mm3 (0.84-5.20); LYMPHOCYTES PERCENT AUTO 5 % (21-46); MONOCYTES ABSOLUTE AUTO 2.03 K/mm3 (0.16-1.47); MONOCYTES PERCENT AUTO 12 % (4-13); Mean Corpuscular HGB 33.4 pg (26.0-34.0); Mean Corpuscular HGB Conc 30.6 g/dL (31.5-36.5); Mean Corpuscular Volume 109 fL (80-100); Mean Platelet Volume 10.4 fL (9.1-12.4); NEUTROPHILS ABSOLUTE AUTO 13.79 K/mm3 (1.96-9.15); NEUTROPHILS PERCENT AUTO 82 % (41-73); Platelet Count 214 K/mm3 (150-400); RDW Coefficient Variation 14.2 % (11.7-14.2); RDW Standard Deviation 57.1 fL (35.1-46.3); Red Blood Cell Count 3.26 M/mm3 (4.30-5.90)
--- NOTE | 2021-03-02 03:36 | NUR ---
REASSESSMENT PT BECOMING MORE CONFUSED. STILL ALERT TO SELF, SURROUNDINGS, PLACE, TIME, AND EVENT; HOWEVER, HE WILL OCCASIONALLY MAKE NONSENSICAL STATEMENTS. STARTED TO BECOME PARANOID THINKING I WAS MESSING WITH HIM AND HIS MEDICATIONS. THEN STARTED TALKING ABOUT THE "[place]" AND HOW I MUST NOT TRUST HIM SINCE I WASN'T LEAVING HIS ICE CHIPS AT BEDSIDE. REASSURED PT IT WASN'T DUE TO NOT TRUSTING HIM, BUT MORE SO FOR SAFETY MEASURES AND THE NEED TO MONITOR HIS OXYGEN SATURATIONS MORE CLOSELY. PT THEN SHOOK HIS HEAD AND AGREED. PT HAS DARK CIRCLES AROUND BILATERAL EYES AND HAS NOT HAD SOLID SLEEP SINCE ADMIT TO ICU. HE APPEARS VERY LETHARGIC AND TIRED. BIPAP REMAINS AT 15/8 WITH FIO2 NOW INCREASED TO 60%. RESP RATE REMAINS 30'S WHILE AWAKE AND WILL DROP TO THE 20'S WHILE RESTING. HE REMAINS AFLUTTER WITH RATE 90-100'S. BP'S STABLE AT THIS TIME WITH DOBUTAMINE AT 2MCG/KG/MIN AND LEVOPHED AT 6MCG/MIN. PRECEDEX REMAINS AT 0.3 MCG/KG/HR, WHICH DOES APPEAR TO BE HELPING PT WAS ABLE TO FINALLY REST AFTER IT WAS INITIATED. WILL CONTINUE TO MONITOR.
[2021-03-02 03:44] LABS: Bun/Creatinine Ratio 48.2 (12.0-20.0); Calcium, Blood 8.6 mg/dL (8.5-10.1); Creatinine, Blood 1.64 mg/dL (0.60-1.20); Potassium, Blood 4.3 mmol/L (3.5-5.5)
--- NOTE | 2021-03-02 06:21 | NUR ---
END OF SHIFT SUMMARY NO SIGNIFICANT CHANGE SINCE LAST ENTRY. PT REMAINS BIPAP DEPENDENT WITH PRESSURES 15/8; FIO2 50%. RESP RATE 20'S. SPO2 >90%. ABLE TO TOLERATE SHORT BREAKS FOR ORAL CARES AND ICE CHIPS WITH 15L HIFLOW NC; HOWEVER, OXYGEN SATURATIONS DROP TO LOW 80'S FAIRLY QUICKLY. PT REMAINS AFLUTTER WITH RATE IN THE 90'S WITH OCCASIONAL PVC'S. CENTRAL LINE REMAINS IN PLACE TO RIGHT SUBCLAVIAN; DR. HILL AWARE OF NOT BEING ABLE TO DISCONTINUE D/T PT'S INABILITY TO LIE FLAT. PICC LINE TO LEFT UPPER ARM WITH PRECEDEX AT 0.3MCG/KG/HR, LEVOPHED AT 6MCG/MIN, DOBUTAMINE AT 2MCG/KG/MIN, AND AMIODARONE AT 0.5MG/MIN, WHICH IS DUE TO COME OFF AT 0840. BP'S HAVE REMAINED STABLE. URINE APPEARS MORE CLOUDY WITH SEDIMENT AND ODOR COMPARED TO PREVIOUS SHIFTS. PT HAS REMAINED AFEBRILE. SLEPT INTERMITTENTLY T/O NIGHT IN SHORT INCREMENTS OF TIME. REMAINS ALERT AND ORIENTED WITH PERIODS OF FORGETFULNESS/CONFUSION. FAMILY CALLED FOR AN UPDATE THIS MORNING WITH REQUESTS THAT CAMILLE RASMUSSEN, SPIRITUAL CARE, SEE PT. THEREFORE, SPIRITUAL CARE CONSULT PLACED. CALL LIGHT REMAINS WITHIN REACH. PT ABLE TO MAKE NEEDS KNOWN. WILL CONTINUE TO MONITOR UNTIL REPORT IS HANDED OFF TO ONCOMING RN.
[2021-03-02 08:02] LABS: Source, Urine Catheter
[2021-03-02 08:22] LABS: Appearance, Urine Hazy (Clear); Bilirubin, Urine Neg (Neg); Blood, Urine 5+ (Neg); Color, Urine Yellow (P-Yellow); Glucose Qualitative, Urine Neg (Neg); Ketones, Urine Neg (Neg); Leukocyte Esterase, Urine Neg (Neg); Nitrite, Urine Neg (Neg); Protein, Urine 3+ (Neg); Specific Gravity, Urine 1.015 (1.003-1.022); Urobilinogen, Urine NORM (Normal)
[2021-03-02 08:37] LABS: Amorphous Mod (0-Heavy); Bacteria Few /hpf; Mucus Light (0-Heavy); Squamous Epithelial Cells Rare /hpf (Few); White Blood Cells, Urine 0-2 /hpf (0-5)
[2021-03-02 08:38] LABS: Calcium Oxalate Crystals Rare /hpf; Uric Acid Crystals Many /hpf
--- NOTE | 2021-03-02 12:25 | NUR ---
PT HAS BEEN ENGAGING AND FUN THIS AM, HE IS TAKING SIPS OF ICE CHIPS AND HAD PART OF A STRAWBERRY ENSURE WITH BANANA FLAKES. HE WAS ABLE TO USE THE BEDPAN X 1 AND HAS "FARTED" MUCH TO HIS SATISFACTION. HE IS TRYING TO REST SOME NOW. HE IS EXPRESSING HIS FEAR IN HIS CONDITION. HE HAS BEEN TALKING TO PALLIATIVE CARE, SPIRITUAL CARE AND FATHER SUKI. HE SAID HE IS SAYING HIS PRAYERS WELL. TRYING HARD TO COPE WITH ALL THE INFORMATION.
--- NOTE | 2021-03-02 12:28 | NUR ---
Pal Care visit - Pt extubated and on bipap, talking with RN when I arrived. Just prior to my visit, update obtained from IDT meeting and pt's bedside RN. Pt is smiling, engaged and asking me questions about me. He is familiar with my family and I with his, in the community, and we spoke about that for a bit. When RN stepped out of the room I asked pt about s/s and he asked me if I was shinto. We spoke about that and his beliefs. He tells me he is not going home. I asked if he meant he was not going to his previous home or that he was not leaving the hospital. He indicated he did not believe he was leaving the hospital. When asked what his understanding was about his condition he stated, I am not going home because of this and pointed to his heart. I acknowledged that his heart function was concerning. I asked if there was anything about his care or medical intervention that he wanted to change or stop and he stated no and shook his head. We spoke more about spirituality and I let him guide that conversation. At that point his hospitalist was making rounds so I did not explore pt's desire to talk further about that at this time. Pt has been visited by and felt great benefit from Chaplain Knowles's visits last week. When I asked if he would like Chaplain Knowles to visit again today, he said yes. Report on my visit given to pt's RN, José Miguel, CM and called for a visit. She came within minutes and report given to also. I planned with pt to come by again later today for a visit.
--- NOTE | 2021-03-02 12:40 | NUR ---
WHEN PT GETS MORE ANIMATED AND HIS RHYTHM GOES TO THE 2:1 CONDUCTION, THOSE BEATS ARE NOT PERFUSING TO HIS WRISTS. WHEN HE SETTLES DOWN AND RETURNS TO A SLOWER ATRIAL FLUTTER PERFUSION IS GOOD. PT IS UP IN THE CHAIR FOR LUNCH, HE ENJOYED THAT. HEPARIN IS INFUSING AT 13U/KG/MIN PER PHARM AND NITRO GTT IS STILL AT 10MCG/MIN. LEFT FOREARM SITE AND INFUSING WELL.
--- NOTE | 2021-03-02 14:03 | NUR ---
Met pt. lying in bed resting and can now talk pt. reports doin much better, encouraged pt. and moffered prayers.
--- NOTE | 2021-03-02 17:41 | NUR ---
Spiritual care note: Provided prayer and gentle school counsellor to Kurt. He admits he is fearful that he won't survive this hospitalization. He feels well-loved and supported by family, and expresses some remorse for "putting them through this." Kurt and I have an easy rapport, and he responds well to prayer/encouragement. Continued spiritual support will be beneficial. I will remain available.
--- NOTE | 2021-03-02 18:37 | NUR ---
BERLIN DID WELL THIS AFTERNOON. HE TRIED SOME SOUP, SOME V8 JUICE AND SOME LEMONADE. HE SAID HE WAS FULL. HE TOLERATED BEING OFF THE BIPAP FOR 5 MINUTES WITH SATS >94, HEARTRATE <100, AND BREATHING RATE IN THE MID 20'S. HE WAS ENCOURAGED AND COACHED, DOING WELL THE WHOLE TIME. HE IS STARTING TO FEEL LIKE HE IS HAVING PHLEGM IN THE BACK OF HIS THROAT, HE IS UNABLE TO HAVE A DEEP COUGH TO PRODUCE ANYTHING AT THIS TIME. HE DID REFUSE A BREATHING TREATMENT. HIS URINE OUTPUT IS GOOD, HIS LEVOPHED IS AT 1MCG/MIN, DOBUTAMINE @ 2MCG/MIN AND PRECEDEX @ 0.3. HE HAS BEEN IN GOOD SPIRITS ALL DAY. HE IS ENCOURAGED TO REST HE HAS NOT DONE MUCH OF THAT TODAY. WILL REPORT OFF TO NEXT SHIFT WHEN ABLE.
--- NOTE | 2021-03-02 19:00 | NUR ---
ASSUMED CARE ASSUMED CARE OF PATIENT. AWAKE AND ALERT. REMAINS ON BIPAP 08/05, BUR 18, FIO2 50%. RR 28-32 AT THIS TIME. PT IS ORIENTED TO ALL EXCEPT DATE AND IS COOPERATIVE WITH CARE. ANXIOUS AT TIMES, BUT CALMS WITH REASSURANCE AND ENCOURAGEMENT. MONITOR SHOWS AFLUTTER, RATE 100-110. SBP 90s AND MAP >60. DOBUTAMINE AT 2MCG/KG/MIN AND LEVOPHED AT 1MCG/MIN. SEDATED WITH PRECEDEX AT 0.3MCG/KG/HR. YU PATENT AND DRAINING TO GRAVITY. SEE SHIFT ASSESSMENT FOR FULL ASSESSMENT.
[2021-03-03 03:23] LABS: BASOPHILS ABSOLUTE AUTO 0.02 K/mm3 (0.00-0.23); BASOPHILS PERCENT AUTO 0 % (0-2); EOSINOPHILS ABSOLUTE AUTO 0.29 K/mm3 (0.00-0.68); EOSINOPHILS PERCENT AUTO 2 % (0-6); Hematocrit 33.8 % (37.0-53.0); Hemoglobin 10.1 g/dL (13.5-17.5); IMMATURE GRAN ABSOLUTE AUTO 0.08 K/mm3 (0.00-0.10); IMMATURE GRAN PERCENT AUTO 1 % (0-1); LYMPHOCYTES ABSOLUTE AUTO 0.64 K/mm3 (0.84-5.20); LYMPHOCYTES PERCENT AUTO 4 % (21-46); MONOCYTES ABSOLUTE AUTO 1.53 K/mm3 (0.16-1.47); MONOCYTES PERCENT AUTO 10 % (4-13); Mean Corpuscular HGB 33.2 pg (26.0-34.0); Mean Corpuscular HGB Conc 29.9 g/dL (31.5-36.5); Mean Corpuscular Volume 111 fL (80-100); Mean Platelet Volume 10.5 fL (9.1-12.4); NEUTROPHILS ABSOLUTE AUTO 12.72 K/mm3 (1.96-9.15); NEUTROPHILS PERCENT AUTO 83 % (41-73); Platelet Count 174 K/mm3 (150-400); RDW Standard Deviation 56.8 fL (35.1-46.3); Red Blood Cell Count 3.04 M/mm3 (4.30-5.90); White Blood Cell Count 15.28 K/mm3 (4.00-11.30)
[2021-03-03 03:37] LABS: Bun/Creatinine Ratio 43.9 (12.0-20.0); Calcium, Blood 8.6 mg/dL (8.5-10.1); Creatinine, Blood 1.73 mg/dL (0.60-1.20); Potassium, Blood 3.8 mmol/L (3.5-5.5)
--- NOTE | 2021-03-03 06:15 | NUR ---
SHIFT SUMMARY REMAINED ON BIPAP T/O SHIFT. PT DOES NOT TOLERATE BREAKS FROM BIPAP FOR LONGER THAN 30 SECONDS. ALSO DOES NOT TOLERATE LOWERING THE HEAD OF BED. PT BECOMES VERY ANXIOUS WHEN DISCUSSING BOTH LOWERING THE HOB AND TAKING OFF BIPAP. CALMS WITH REASSURANCE. TOLERATING ICE CHIPS AND SMALL SIPS OF WATER. DENIES C/O PAIN. DOES NOT WANT TO BE FULLY REPOSITIONED, SO HIPS WERE SHIFTED Q2H. MONITOR SHOWS AFLUTTER, RATE 100s. SBP 90s-100s WITH MAP >60. LEVOPHED AT 1MCG/MIN T/O MOST OF SHIFT- NOW ON STANDBY. DOBUTAMINE CONTINUES AT 2MCG/KG/MIN. PRECEDEX BETWEEN 0.2-0.7MCG/KG/HR- NOW AT 0.7MCG/KG/HR. PT ROUSES EASILY TO STIMULI. MOVES ALL EXTREMITIES WEAKLY. DENIES C/O PAIN OR DISCOMFORT. YU PATENT AND DRAINING CLOUDY YELLOW URINE. PT NEEDS CL REMOVED, BUT IS UNABLE TO LIE FLAT FOR PROCEDURE. WILL REPORT TO ONCOMING RN WHEN AVAILABLE.
--- NOTE | 2021-03-03 07:15 | NUR ---
Received report from Areli SANCHEZ. Patient sitting upright and awake and able to communicate his needs. He is very anxious with any care r/t oral and working with BIPAP mask. I was able to give ice chips and only removing tube in from and then he immediately want back in place. His BIPAP settings 10/6 70% and sats >90%. He has PICC line to SAMAN dressing intact and site WNL's and is infusing Dobutamine 2 mcg/kg/min, Precedex 0.7 mcg/kg, NS TKO and Levophed on standby for systolic >100. He has 16Fr Reynoso draining to gravit light clair colored urine. Bilateral LE's remain edemadous about 3+ and very red. He is able to move all extremities and very weak.
--- NOTE | 2021-03-03 09:49 | NUR ---
Spiritual care visit conducted. Upon receiving a request for spiritual care for the patient from DANIEL Vieyra, I visit patient. Patient tells me about his [employer] and upon being questioned by the patient, I state that I am U[place]. Patient still welcomes the [facility]. Patient talks about his concerns, fears and deepest prayers. I reinforce helpful attitudes and practices and provide therapeutic listening and prayer. Patient responds well and shows signs of increased peace. He voices appreciation for the visit. Spiritual care will remain available to patient and family.
--- NOTE | 2021-03-03 10:11 | NUR ---
Patient has only tolerated very short breaks with hose off for ice chips. He asked for BIPAP to be removed and placed him on high flow NC at 15 liters and he lasted 30 seconds before sats 75% and he asked to be placed back on. We tried again for am meds and about the same, but was able to take PO with water/Banatrol. He is currently back on BIPAP / RR 18, 70 FiO2 and sats >90%. He continues to call appropriately use call light and able to communicate his needs. VSS, See EMR, No chnages to gtt settings.
--- NOTE | 2021-03-03 10:30 | NUR ---
[facility] Care visit - Pt greeted me with a small smile. Resp rate 34 and labored with bipap on. When I asked Kurt how he was doing, he said, "Peachy" but could not say anything more. Mostly, I stood next to him and held his hand. He has less of a strong office aide than yesterday but held on to my hand and closed his eyes. He appears to be using all reserve/energy to breathe and appears profoundly fatigued with the effort. Even with bipap in place he is using accessory muscles of respiration. His bed has been repositioned towards window & water [facility]. He noded yes when I said, "you have a much better view today". I spoke to him very little. He only nodded if he responded. Eyes remained closed after initial greeting to me. Pt has nonverbal indicators for anxiety and discomfort. When asked if he was hurting anywhere he shook his head no. Case conferenced with pt's RN and Chaplain Knowles after my visit. Will remain available for supportive visits to pt/family.
--- NOTE | 2021-03-03 11:38 | NUR ---
Dr Eldridge in room and assessed patient. BIPAP setting changes to 14/8 RR 18 FiO2 80%, Sats>90%. Dr Rosado by earlier and changed Lasix dose and Dr Eldridge entered now dose and was given. No gtt changes Dobutamine at 2 mcg/kg/min, Precedex 0.7 mcg/kg/hr and NS TKO. VSS, See EMR. Reynoso draining to gravity.
--- NOTE | 2021-03-03 14:00 | NUR ---
Patient resting off and on. Dr Eldridge by again to assess. No gtt or BIPAP settings changes. Continues to deny wanting and food or puddings. He tolerates meds and constant ice chips. Pastoral care came by earlier and talked with patient as he requested. VSS, See EMR. Family just arrived at bedside
--- NOTE | 2021-03-03 15:53 | NUR ---
Family has gone. Dr Rosado came back and talked with patient. BIPAP remains at 14/8 RR18 FiO2 80%. Dobutamine 2 mcg/kg/min, Precedex at 0.7 mcg/kg/hr and NS TKO. He remains sitting up and listening to music on phone. VSS See EMR. Urine draining to gravity light clair colored. Tolerating PO meds.
--- NOTE | 2021-03-03 18:03 | NUR ---
Patient received bed bath and changed linen. He continues on BIPAP / RR 18, FiO2 80% and sats >90%. PICC line infusing Dobutamine at 2 mcg/kg/min, Precedex 0.7 mcg/kg/hr, NS TKO. Reynoso had 900 ml of coudy light clair urine with 514 ml of IV in. Continues with ice chips and denies wanting anything else. Pastoral care back to visit and he has been enjoying music. Cold wash cloth on head occassionally when requested. No stool this shift.
--- NOTE | 2021-03-03 18:56 | NUR ---
Spiritual care note: Spoke with pt's RN about prognosis before speaking to pt. Per RN, pt unlikely to improve and may be nearing end of life. Kurt and I have an easy rapport. I provided prayer and conversation. He made little jokes and was quite charming. He told me he wants to live, but is not sure if he wants to live "like this." Noticable skin color change from yesterday. He appears very fatigued. Family is loving and supportive. No family present when I visited. 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 I will remain available.
--- NOTE | 2021-03-03 20:15 | NUR ---
ASSESSMENT/ASSUMED CARE: PY VERY PLEASANT AND COOPERATIVE WITH CARE. A&OX4. DENIES PAIN WHEN LEFT ALONE. REQUESTS ICE CHIPS; KEEPING BIPAP ON, BUT REMOVING HOSE TO ALLOW ICE CHIPS FROM TIME TO TIME WITH NURSE ASSIST. ORAL CARE DONE, BUT PT DOESN'T TOLERATE TOO MUCH. LS CLEAR UPPERS, VERY DIMINISHED ALMOST ABSENT IN BILAT BASES. BIPAP 14/8 80% WITH BUR 18. RR 26-36. WITH BIOX 96%. NONPRODUCTIVE COUGH. HEART SOUNDS DIMINISHED T/O WITH MONITOR SHOWING SR WITH HR 93. CENTRAL LINE RIJ; ALL PORTS FLUSHED WITH CAPS CHANGED; UNABLE TO FLUSH BROWN PORT. SAMAN 3 LUMEN PICC WITH DOBUTAMINE RUNNING AT 13.6CC/HR=2MCG/KG/MIN WITH PRECEDEX AT 18.6CC/HR=0.7MCG/KG/HR. NS AT 10CC/HR. SKIN COOL AND DRY. REDDENDED AREAS/SCABS ON BILAT ARMS. BILAT LEGS WITH REDDENED LOWER LEGS PULSES FOUND VIA DOPPLER. RADIAL PULSES STRONG. ABD R/D AND FIRM; TENDER LLQ TO PALPATION. HYPER BTX4. YU DRAINING CLOUDY YELLOW URINE WITH SEDIMENTS. YU CARE DONE.
[2021-03-04 03:37] LABS: BASOPHILS ABSOLUTE AUTO 0.04 K/mm3 (0.00-0.23); BASOPHILS PERCENT AUTO 0 % (0-2); EOSINOPHILS ABSOLUTE AUTO 0.21 K/mm3 (0.00-0.68); EOSINOPHILS PERCENT AUTO 1 % (0-6); Hematocrit 32.9 % (37.0-53.0); Hemoglobin 9.9 g/dL (13.5-17.5); IMMATURE GRAN ABSOLUTE AUTO 0.09 K/mm3 (0.00-0.10); IMMATURE GRAN PERCENT AUTO 1 % (0-1); LYMPHOCYTES ABSOLUTE AUTO 0.56 K/mm3 (0.84-5.20); LYMPHOCYTES PERCENT AUTO 4 % (21-46); MONOCYTES ABSOLUTE AUTO 1.39 K/mm3 (0.16-1.47); MONOCYTES PERCENT AUTO 9 % (4-13); Mean Corpuscular HGB 33.4 pg (26.0-34.0); Mean Corpuscular HGB Conc 30.1 g/dL (31.5-36.5); Mean Corpuscular Volume 111 fL (80-100); Mean Platelet Volume 10.7 fL (9.1-12.4); NEUTROPHILS ABSOLUTE AUTO 13.31 K/mm3 (1.96-9.15); NEUTROPHILS PERCENT AUTO 85 % (41-73); Platelet Count 184 K/mm3 (150-400); RDW Coefficient Variation 13.7 % (11.7-14.2); RDW Standard Deviation 56.1 fL (35.1-46.3); Red Blood Cell Count 2.96 M/mm3 (4.30-5.90)
[2021-03-04 03:51] LABS: Magnesium, Blood 2.8 mg/dL (1.6-2.4)
[2021-03-04 03:52] LABS: Bun/Creatinine Ratio 44.7 (12.0-20.0); Calcium, Blood 8.9 mg/dL (8.5-10.1); Creatinine, Blood 1.88 mg/dL (0.60-1.20); Potassium, Blood 3.8 mmol/L (3.5-5.5)
--- NOTE | 2021-03-04 06:15 | NUR ---
SHIFT SUMMARY: PT NOT TOLERATING BREAKS FROM BIPAP FOR MORE THAN 10 SECONDS. REQUESTING ICE CHIPS THROUGHOUT THE THE NOC NEEDED. DOES NOT TOLERATE LAYING FLAT OR TURNING FROM SIDE TO SIDE. JUST DOING HIP TURNS. SAMAN 3 LUMEN PICC WITH DOBUTAMINE AT 2MCG/KG/MIN WITH PRECEDX AT 0.7MCG/KG/HR. PT C/O SOB ABOUT 0555 AND DIFFICULT TO RECOOP. RT IN TO GIVE PT A BREATHING TX. FIO2 INCREASED TO 100%. HR UP 120'S AND AFIB. RT CHANGED HIS BIPAP SETTINGS TO 18/10 WITH FIO2 100%. GOING TO RESTART LEVOPHED. LASIX 60MG IV GIVEN EARLY.
--- NOTE | 2021-03-04 07:26 | NUR ---
Received report from Guera SANCHEZ. Patient struggling to breath since about 0600 and is just starting to increase sats with BIPAP 16/9 FiO2 100% and sast 70% and increaseing to the 80%'s He has R subclavin CL that needs to be pulled but patient can't lay flat and high BIPAP pressures to be pulled. He has PICC line to SAMAN dressing intact and site WNL's and is infusing Levophed increased to 10 mcg/min, Dobutamine 2 mcg/kg/min, Precedex 0.7 mcg/kg/hr, NS TKO. He has 16 Fr Reynoso draining to gravity cloudy light clair urine. Doppler bilateral pedal pulses and 3+ edema to shins down and and distal redness. He is alert and oriented and is able to communicate his needs.
--- NOTE | 2021-03-04 08:00 | NUR ---
Patient at 0741. Went into roomn shortly after giving him some ice and he was alert and orient at that time and sats were back up in the 90%'s. I went back in room with Dr Rosado and it looked like he was sleeping and tried to arouse with no response. Palpated for pulse and we weree unable to find and used doppler to caritid and faint irregular pulse, sats still in the mid 90%'s. HR 60's and decreasing to 50. Contacted family. Shortly after HR 0 and stopped BIPAP and turned off gtt's and pronounced . Notified CN, and Dr Eldridge. Sister Yvette arrived at 0755.
--- NOTE | 2021-03-04 10:34 | NUR ---
Visit made to family still visiting and grieving after pt's this am. Condolences and support offered. Shared in reminiscing and conversations we had had with Kurt this week. Mom expressed gratitude for peaceful passing and all the time family had to visit with pt while he was lucid and extubated. She also expressed gratitude for the care he received while here from all staff and
--- NOTE | 2021-03-04 11:01 | NUR ---
Spiritual care visit conducted. Spiritual care was called to patient's rm shortly after his demise. Family is grieving appropriately. I conduct a life review, provide prayer and discuss home selection. Family is kind, reflective and looking to the things to be thankful for in the midst of loss. They respond well to all interventions and are complimentary of the hospital staff.
== END 2021-03-04 07:41 | DRG 207 ==
LOC: ER 07:45 → ICUW 10:16 → ICUE 10:16
PROVIDERS: Emergency Medicine; Family Medicine; Internal Medicine Cardiovascular Disease; Internal Medicine Critical Care Medicine; ADMIT Internal Medicine
PROC: 0BH17EZ Insertion of Endotracheal Airway into Trachea, Via Natural or Artificial Opening (ICD-10-PCS; principal; 2021-02-22)
PROC: 5A1955Z Respiratory Ventilation, Greater than 96 Consecutive Hours (ICD-10-PCS; 2021-02-22)
PROC: 02HV33Z Insertion of Infusion Device into Superior Vena Cava, Percutaneous Approach (ICD-10-PCS; 2021-02-22)
PROC: 3E043XZ Introduction of Vasopressor into Central Vein, Percutaneous Approach (ICD-10-PCS; 2021-02-22)
PROC: 5A09457 Assistance with Respiratory Ventilation, 24-96 Consecutive Hours, Continuous Positive Airway Pressure (ICD-10-PCS; 2021-03-01)
DX: J96.21 Acute and chronic respiratory failure with hypoxia (principal); I50.23 Acute on chronic systolic (congestive) heart failure; G92 Toxic encephalopathy; I21.A1 Myocardial infarction type 2; J15.211 Pneumonia due to Methicillin susceptible Staphylococcus aureus; Z66 Do not resuscitate; N17.0 Acute kidney failure with tubular necrosis; E87.1 Hypo-osmolality and hyponatremia; E87.2 Acidosis; I42.0 Dilated cardiomyopathy; J44.0 Chronic obstructive pulmonary disease with (acute) lower respiratory infection; G61.81 Chronic inflammatory demyelinating polyneuritis; I48.92 Unspecified atrial flutter; Z20.822 Contact with and (suspected) exposure to COVID-19; J96.22 Acute and chronic respiratory failure with hypercapnia; R57.0 Cardiogenic shock; I73.9 Peripheral vascular disease, unspecified; I48.91 Unspecified atrial fibrillation; E87.6 Hypokalemia; F10.20 Alcohol dependence, uncomplicated; K70.30 Alcoholic cirrhosis of liver without ascites; F12.90 Cannabis use, unspecified, uncomplicated; E78.5 Hyperlipidemia, unspecified; F32.9 Major depressive disorder, single episode, unspecified; Z87.891 Personal history of nicotine dependence; Z79.52 Long term (current) use of systemic steroids; Z79.899 Other long term (current) drug therapy; Z88.6 Allergy status to analgesic agent; Z99.81 Dependence on supplemental oxygen
CPT/HCPCS: 0241U; 31500; 36415; 36556; 36569; 36600; 51702; 70450; 71045; 76705; 80048; 80053; 80061; 81001; 82140; 82330; 82803; 82947; 83605; 83735; 83880; 84100; 84132; 84443; 84484; 85025; 85610; 85730; 86317; 86704; 86705; 86708; 86709; 86803; 87040; 87070; 87077; 87086; 87186; 87205; 87340; 93005; 93010; 93925; 94002; 94003; 94640; 94660; 96374; 99285-25; A9270; C1751; C8929; C9113; J0153; J0282; J1250; J1650; J1720; J1940; J2060; J2250; J2270; J2370; J2543; J2704; J3010; J3370; J3411; J7030; J7040; J7050; J7060; P9046; Q9957